=== PATIENT | female | born 1950 | race Caucasian/White ===

== ENCOUNTER → 2018-01-23 13:52 | Outpatient (CLI) | payer MEDICARE, BC, SELFPAY ==
--- NOTE | 2018-01-23 13:55 | DI.RAD.S_ITS ---
PROCEDURE: XR FOOT LT MIN 3V INDICATIONS: Left foot pain following fall TECHNIQUE: 3 views of the foot were acquired. COMPARISON: None. FINDINGS: Bones: No fractures or dislocations. No suspicious bony lesions. Prior first metatarsal osteotomy and bunionectomy. 2 micro-fixation screws present in expected position. Well-corticated osseous density seen adjacent to the lateral malleolus which may be related to an old fracture. Bony excrescence involves the distal fibular metadiaphysis along the tibial surface. Soft tissues: No tibiotalar joint effusion. Achilles tendon appears normal. IMPRESSION: No displaced fracture seen. If there is continued pain, followup exam or additional imaging such as MRI or CT could be performed for further assessment Postsurgical sequelae of the first metatarsus. Bony excrescence involving the distal fibula which may be related to a osteochondroma. Dictated by: Calin DELGADO Interpreted: Porter Ang MD on 01/23/2018 at 14:20 Approved by: Porter Ang M.D. on 01/23/2018 at 14:30
== END ==
PROVIDERS: Family Provider Family Medicine; PCP Family Medicine; Visit Provider Registered Nurse
DX: M79.672 Pain in left foot (principal)
CPT/HCPCS: 73630

== ENCOUNTER → 2018-02-20 08:57 | Outpatient (CLI) | payer MEDICARE, BC, SELFPAY ==
--- NOTE | 2018-02-20 08:59 | DI.MG.S_ITS ---
BILATERAL DIGITAL DIAGNOSTIC MAMMOGRAM 3D/2D SHORT-TERM FOLLOW-UP: 02/20/2018 CLINICAL: Patient returns for a 6 month follow up of the left breast. Due for bilateral imaging. Comparison is made to exams dated: 01/29/2017 mammogram, 01/21/2017 mammogram, and 01/19/2016 mammogram - [facility]. There are scattered fibroglandular elements in both breasts. The previously visualized oval density with an indistinct margin in the left breast at 3 o'clock posterior depth on the mammogram dated 01/29/17 is no longer seen. No other significant masses, calcifications, or other findings are seen in either breast. IMPRESSION: INCOMPLETE: NEEDS ADDITIONAL IMAGING EVALUATION An ultrasound is recommended to further characterize the previously visualized oval density in the left breast posterior depth. This exam was interpreted at Station ID: [id number]. NOTE: For mammograms, a report in lay terms will be sent to the patient. Approximately 15% of breast malignancies will not be visualized mammographically. In the management of a palpable breast mass, a negative mammogram must not discourage biopsy of a clinically suspicious lesion. Electronically Signed By: Snoi Blood M.D. lk/:02/20/2018 09:34:27 letter sent: Additional Imaging Needed ACR BI-RADS Category 0: Incomplete 3340F
--- NOTE | 2018-02-20 08:59 | DI.US.S_ITS ---
ULTRASOUND OF LEFT BREAST: 02/20/2018 CLINICAL: 6 month follow-up of cysts. Comparison is made to exams dated: 02/20/2018 mammogram, 08/19/2017 ultrasound, 01/29/2017 ultrasound, and 01/29/2017 mammogram - [facility]. Color flow ultrasound of the left breast was performed on the areas of interest. Spear scale images of the real-time examination were reviewed. There is a 0.6 cm x 0.4 cm x 0.8 cm cluster of oval microcysts in the left breast at 3 o'clock posterior depth 10 cm from the nipple. This abnormality is decreased in size. Color flow imaging demonstrates that there is no vascularity present. IMPRESSION: PROBABLY BENIGN - FOLLOW-UP RECOMMENDED The 0.6 cm x 0.4 cm x 0.8 cm cluster of oval microcysts in the left breast is probably benign. A follow-up mammogram and an ultrasound in 12 months is recommended. This exam was interpreted at Station ID: [id number]. Electronically Signed By: Soni pollard/:02/20/2018 17:30:49 letter sent: Followup Recommended Ultrasound BI-RADS: 3 Probably benign
== END ==
PROVIDERS: Family Provider Family Medicine; PCP Family Medicine; Visit Provider Family Medicine
DX: R92.8 Other abnormal and inconclusive findings on diagnostic imaging of breast (principal)
CPT/HCPCS: 76642; 77066; G0279

== ENCOUNTER 2018-03-02 06:27 | Day surgery (SDC) | payer MEDICARE, BC, SELFPAY ==
--- NOTE | 2018-03-02 | PATH_ITS ---
[facility] Accession Number: [id number] . 01 Material submitted: . RECTAL POLYP . 02 Diagnosis: Rectal Polyp: Hyperplastic polyp. MRV/03/03/2018 . 02 Electronically signed: . Bakari Carbone MD, PhD, Pathologist NPI- [id number] . 01 Gross description: . Received in one formalin-filled container labeled with the patient's name and labeled rectal polyp, are two 0.2-0.3 cm portions of tissue, entirely submitted in one cassette. ([id number]) /FRR . 02 Pathologist provided ICD-10: K62.1 . 02 CPT . 770423 Performed at: 01 [facility] [address] [facility][note 3], [place], [place] [id number] MD Leandro White MD Phone: [phone] Performed at: 02 [facility] [address] [place], [place] [id number] MD Bernardo Sanders MD Phone: [phone]
[2018-03-02 07:13] VITALS: BP 110/77; PULSE 88; RESP 16; TEMP 36.4; O2SAT 95; BMI 33.6
[2018-03-02] MEDS: SODIUM CHLORIDE 0.9% 1,000 ML 200 ML IV (07:20)
--- NOTE | 2018-03-02 07:38 | PM.HP.1 ---
History of Present Illness Date Patient Seen: 03/02/18 Time Patient Seen: 07:38 Chief complaint: Flex Sig 66100 Narrative: 67-year-old female with tubulovillous adenoma of the rectum at approximately 15 cm removed with hot snare 1 year ago. She requires surveillance for such. On further history today she had no new changes in bowel function. Denies any melena, hematochezia, bright red blood per rectum, constipation, diarrhea, abdominal pain, loss of appetite, or unexplained weight loss. Patient History Medical History History of colon polyps (Acute) Arthritis of knee (Chronic 2003) CTS (carpal tunnel syndrome) (Chronic 11/2015) Cataract (Chronic 2011) Retinal detachment (Chronic 11/2015) Tinnitus (Chronic) BCC (basal cell carcinoma of skin) (Resolved 08/1981) Surgical History History of colonoscopy (Acute) Anesthesia (Resolved) History of ovarian cystectomy (Resolved 07/1976) History of removal of skin mole (Resolved 10/1981) Family & Social History Family History: Reviewed 03/02/18 by Keith Elena MD Social History: household members spouse Tobacco & Substance use: Smoking Status Never smoker Meds Home Medications Medication Instructions Recorded Confirmed Type MULTIVITAMIN 1 cap PO QDAY #0 05/06/12 01/23/18 History Allergies Allergy/AdvReac Type Severity Reaction Status Date / Time No Known Drug Allergies Allergy Unverified 01/23/18 13:36 Review of Systems Review of Systems All systems reviewed & are unremarkable except as noted in HPI and below Exam Vital Signs (past 8 hours): - 03/02/18 07:13 Temperature 97.6 F Pulse Rate 88 Respiratory Rate 16 Blood Pressure 110/77 Pulse Oximetry 95 Narrative Exam Narrative: Well-nourished well-developed female in no acute distress. Alert oriented x3 Sclera nonicteric Regular rate rhythm Abdomen soft, nondistended, nontender, no masses Extremities show no clubbing or cyanosis Objective Labs Labs: No radiographic or laboratory studies for review Assessment & Plan Plan: Assessment/Plan Narrative: 67-year-old female with history of tubulovillous adenoma of the rectum now requiring surveillance for such. Flexible sigmoidoscopy is recommended since she underwent complete colonoscopy exactly 1 year ago. Technical details of procedure were reviewed. Risks, benefits, alternatives were explained. Risks including but not limited to sedation, aspiration, bleeding, pain, missed lesion, incomplete examination, need for further radiographic studies, need for further treatment, colonic perforation, and need for major abdominal surgery were all discussed in detail. All questions were answered to her satisfaction, and she voiced understanding. Consent was placed on the chart. We will proceed as above.
--- NOTE | 2018-03-02 07:41 | P.HP_ITS ---
History of Present Illness Date Patient Seen: 03/02/18 Time Patient Seen: 07:38 Chief complaint: Flex Sig 20076 Narrative: 67-year-old female with tubulovillous adenoma of the rectum at approximately 15 cm removed with hot snare 1 year ago. She requires surveillance for such. On further history today she had no new changes in bowel function. Denies any melena, hematochezia, bright red blood per rectum, constipation, diarrhea, abdominal pain, loss of appetite, or unexplained weight loss. Patient History Medical History History of colon polyps (Acute) Arthritis of knee (Chronic 2003) CTS (carpal tunnel syndrome) (Chronic 11/2015) Cataract (Chronic 2011) Retinal detachment (Chronic 11/2015) Tinnitus (Chronic) BCC (basal cell carcinoma of skin) (Resolved 08/1981) Surgical History History of colonoscopy (Acute) Anesthesia (Resolved) History of ovarian cystectomy (Resolved 07/1976) History of removal of skin mole (Resolved 10/1981) Family & Social History Family History: Reviewed 03/02/18 by Keith Elena MD Social History: household members spouse Tobacco & Substance use: Smoking Status Never smoker Meds Home Medications Medication Instructions Recorded Confirmed Type MULTIVITAMIN 1 cap PO QDAY #0 05/06/12 01/23/18 History Allergies Allergy/AdvReac Type Severity Reaction Status Date / Time No Known Drug Allergies Allergy Unverified 01/23/18 13:36 Review of Systems Review of Systems All systems reviewed & are unremarkable except as noted in HPI and below Exam Vital Signs (past 8 hours): - 03/02/18 07:13 Temperature 97.6 F Pulse Rate 88 Respiratory Rate 16 Blood Pressure 110/77 Pulse Oximetry 95 Narrative Exam Narrative: Well-nourished well-developed female in no acute distress. Alert oriented x3 Sclera nonicteric Regular rate rhythm Abdomen soft, nondistended, nontender, no masses Extremities show no clubbing or cyanosis Objective Labs Labs: No radiographic or laboratory studies for review Assessment & Plan Plan: Assessment/Plan Narrative: 67-year-old female with history of tubulovillous adenoma of the rectum now requiring surveillance for such. Flexible sigmoidoscopy is recommended since she underwent complete colonoscopy exactly 1 year ago. Technical details of procedure were reviewed. Risks, benefits, alternatives were explained. Risks including but not limited to sedation, aspiration, bleeding, pain, missed lesion , incomplete examination, need for further radiographic studies, need for further treatment, colonic perforation, and need for major abdominal surgery were all discussed in detail. All questions were answered to her satisfaction, and she voiced understanding. Consent was placed on the chart. We will proceed as above.
--- NOTE | 2018-03-02 07:42 | PM.PREOP ---
Pre-operative Note Interval Note Pre-op Check: Yes History & Physical Reviewed by Physician, Yes Exam Performed and Yes History & Physical exam performed today by Physician Changes: No ASA Class (for procedural sedation): I
[2018-03-02] MEDS: MIDAZOLAM 5 MG/5 ML VIAL IV (07:55)
[2018-03-02] MEDS: fentaNYL 250 MCG/5 ML INJ IV (07:56)
[2018-03-02 08:12] VITALS: BP 94/64; PULSE 99; RESP 16; TEMP 36.9; O2SAT 96
--- NOTE | 2018-03-02 08:13 | P.OP.ENDO_ITS ---
Operative Date/Time/Diagnoses Date of procedure: 03/02/18 Time of procedure: 08:10 Pre-op diagnosis: Personal history of colon polyps Post-op diagnosis: other (Rectal polyp and diverticulosis) Procedure & Clinicians Study performed: 1. Sedation per surgeon 2. Colonoscopy with cold forceps polypectomy Same procedure as scheduled: Yes Indications: 67-year-old female who is 1 year status post colonoscopy with hot snare polypectomy of large rectal polyp that was shown to be tubulovillous adenoma. She requires surveillance given the size and location of the adenoma. Flexible sigmoidoscopy versus colonoscopy was recommended. Surgeon: Keith Elena Procedure Notes SCOAP/Timeout: Yes Procedure in detail: After obtaining informed consent, the patient was brought to the GI suite and placed in the left lateral decubitus position on the examination table. After placement of appropriate monitors, the patient was given incremental doses of Versed and Fentanyl until an appropriate level of sedation was achieved. A time out was held per SCOAP protocol. A digital rectal examination was performed and did not reveal any masses or obstructing lesions. The colonoscope was gently passed into the patient's anus and the entire colon navigated to the level of the cecum with minimal difficulty. Once in the cecum, the scope was withdrawn being sure to go before and beyond all mucosal folds and prominences and get an excellent examination. The findings are noted above. At the level of the rectal vault, the scope was retroflexed and the internal anal canal was examined. The scope was straightened and air aspirated from the colon. The instrument was removed from the patient's body and the procedure was concluded. The patient was allowed to awaken from sedation without difficulty and taken to the post-anesthesia care unit in good condition. Scope withdrawal time: 9:30 min Sedation minutes: 18 Findings: diverticulosis and polyp Specimen(s): other (Rectal polyp adjacent to Cam[place] tattoo at approximately 12 cm) Complications: none Recommendations: Colonscopy in 5 years, High fiber diet and Will call with biopsy results Plan for aftercare: 1. Discharged home Follow up: as needed Disposition: PACU
[2018-03-02 08:17] VITALS: BP 97/64; PULSE 92; RESP 15; O2SAT 96
[2018-03-02 08:29] VITALS: BP 93/55; PULSE 91; RESP 15; TEMP 36.3; O2SAT 96
== END 2018-03-02 08:55 | disposition home or self-care (01) ==
PROVIDERS: Family Provider Family Medicine; PCP Family Medicine; Visit Provider Surgery
PROC: 0DJD8ZZ Inspection of Lower Intestinal Tract, Via Natural or Artificial Opening Endoscopic (ICD-10-PCS; CPT 45378; principal; 2018-03-02 07:45)
DX: Z86.010 Personal history of colon polyps (principal); K57.30 Diverticulosis of large intestine without perforation or abscess without bleeding; K62.1 Rectal polyp
CPT/HCPCS: 45380; 88305; 99152; J2250; J3010

== ENCOUNTER → 2018-05-12 19:17 | Outpatient (CLI) | payer MEDICARE, BC, SELFPAY ==
--- NOTE | 2018-05-12 19:20 | DI.RAD.S_ITS ---
PROCEDURE: XR SHOULDER RT MIN 2V INDICATIONS: right shoulder pain after fall TECHNIQUE: 3 views of the shoulder were acquired. COMPARISON: None. FINDINGS: Bones: Greater tuberosity fracture, minimally displaced. Mild a.c. and glenohumeral joint degeneration. Anatomic alignment at the glenohumeral joint Soft tissues: No suspicious soft tissue calcifications. IMPRESSION: Minimally displaced fracture involving the greater tuberosity. The Dictated by: Иван Carrillo M.D. on 05/12/2018 at 19:57 Approved by: Иван Carrillo M.D. on 05/12/2018 at 19:58
== END ==
PROVIDERS: Family Provider Family Medicine; PCP Family Medicine; Visit Provider Physician Assistant
DX: M25.511 Pain in right shoulder (principal); M19.011 Primary osteoarthritis, right shoulder
CPT/HCPCS: 73030

== ENCOUNTER → 2018-10-28 07:02 | Outpatient (CLI) | payer MEDICARE, BC, SELFPAY ==
[2018-10-28 09:38] LABS: Add Manual Diff / Slide Review NO; Basophils Absolute Auto 100 /uL (0-100); Basophils Percent Auto 0.9 % (0-2); Eosinophils Absolute Auto 200 /uL (0-450); Eosinophils Percent Auto 2.2 % (2-4); Hematocrit 43.3 % (36-46); Lymphocytes Absolute Auto 2700 /uL (1100-4500); Lymphocytes Percent Auto 33.8 % (25-40); Mean Corpuscular HGB Conc 34.7 % (30-36); Mean Corpuscular Hemoglobin 32.7 PG (26-34); Mean Corpuscular Volume 94.1 fL (80-100); Monocytes Absolute Auto 600 /uL (0-900); Monocytes Percent Auto 7.5 % (3-14); Neutrophils Absolute Auto 4400 /uL (1500-7000); Neutrophils Percent Auto 55.6 % (50-75); Platelet Count 342 X10^3/uL (150-400); Red Cell Distribution Width 13.5 % (11.6-14.8); White Blood Cell Count 7.9 X10^3/uL (4.5-11.0)
[2018-10-28 09:58] LABS: Alanine Aminotransferase 30 IU/L (9-52); Albumin 4.2 g/dL (3.5-5.0); Albumin Globulin Ratio 1.2 (1.0-2.8); Alkaline Phosphatase 90 U/L (38-126); Aspartate Aminotransferase 29 IU/L (14-36); BUN Creatinine Ratio 15.7 (6-22); Bilirubin Total 0.5 mg/dL (0.2-1.3); Blood Urea Nitrogen 11 mg/dL (7-17); Carbon Dioxide 30 mmol/L (22-32); Chloride 103 mmol/L (98-107); Cholesterol 220 mg/dL (140-199); Estimated Glomerular Filt Rate > 60.0 mL/min (>60); Globulin 3.6 g/dL (1.7-4.1); Glucose 88 mg/dL (80-110); HDL Cholesterol 49 mg/dL (40-60); HEMOLYSIS < 15 (0-50); LDL Cholesterol Calculated 147 mg/dL (<100); Potassium 4.3 mmol/L (3.4-5.1); Sodium 141 mmol/L (137-145); Total Protein 7.8 g/dL (6.3-8.2); Triglycerides 122 mg/dL (35-150)
[2018-10-28 10:39] LABS: Thyroid Stimulating Hormone 2.71 uIU/mL (0.47-4.68)
== END ==
PROVIDERS: PCP Family Medicine; Visit Provider Family Medicine
DX: R42 Dizziness and giddiness (principal)
CPT/HCPCS: 36415; 80053; 80061; 84443; 85025

== ENCOUNTER → 2019-03-01 10:08 | Outpatient (CLI) | payer MEDICARE, BC, SELFPAY ==
--- NOTE | 2019-03-01 10:10 | DI.MG.S_ITS ---
BILATERAL DIGITAL DIAGNOSTIC MAMMOGRAM 3D/2D SHORT-TERM FOLLOW-UP: 03/01/2019 CLINICAL: Patient returns for a 12 month follow up of the left breast. Due for bilateral imaging. Comparison is made to exams dated: 02/20/2018 mammogram, 01/29/2017 mammogram, 01/21/2017 mammogram, and 01/19/2016 mammogram - [facility]. There are scattered fibroglandular elements in both breasts. There is an oval density with an indistinct margin in the left breast at 3 o'clock posterior depth. This is not significantly changed over multiple prior exams. No other significant masses, calcifications, or other findings are seen in either breast. IMPRESSION: INCOMPLETE: NEEDS ADDITIONAL IMAGING EVALUATION The density in the left breast is stable. An ultrasound is recommended for confirmation of stability. This was performed immediately following this exam. The right breast mammogram is stable without evidence of malignancy. This exam was interpreted at Station ID: [id number]. NOTE: For mammograms, a report in lay terms will be sent to the patient. Approximately 15% of breast malignancies will not be visualized mammographically. In the management of a palpable breast mass, a negative mammogram must not discourage biopsy of a clinically suspicious lesion. Electronically Signed By: Yanique lopez/:03/01/2019 11:04:00 ACR BI-RADS Category 0: Incomplete 3340F
--- NOTE | 2019-03-01 10:10 | DI.US.S_ITS ---
ULTRASOUND OF LEFT BREAST: 03/01/2019 CLINICAL: 1 yr f/u. Comparison is made to exams dated: 03/01/2019 mammogram, 02/20/2018 ultrasound, 02/20/2018 mammogram, 08/19/2017 ultrasound, 01/29/2017 ultrasound, and 01/29/2017 mammogram - [facility]. Color flow and real-time ultrasound of the left breast were performed. Spear scale images of the real-time examination were reviewed. There is a stable benign 0.6 cm x 0.5 cm x 0.5 cm cluster of oval micro cysts in the left breast at 3 o'clock posterior depth 10 cm from the nipple. No suspicious changes. Color flow imaging demonstrates that there is no vascularity present. IMPRESSION: BENIGN The 0.6 cm cluster of micro cysts in the left breast is stable and benign. There is no sonographic evidence of malignancy. Return to annual mammogram screening schedule is recommended. Findings and recommendations were conveyed to the patient at time of exam. This exam was interpreted at Station ID: [id number]. Electronically Signed By: Yanique lopez/:03/01/2019 11:27:04 letter sent: Normal Exam Ultrasound BI-RADS: 2 Benign
== END ==
PROVIDERS: PCP Family Medicine; Visit Provider Family Medicine
DX: R92.8 Other abnormal and inconclusive findings on diagnostic imaging of breast (principal); N64.89 Other specified disorders of breast
CPT/HCPCS: 76642; 77066; G0279

== ENCOUNTER → 2019-04-01 09:34 | Outpatient (CLI) | payer MEDICARE, BC, SELFPAY ==
[2019-04-04 14:19] LABS: ANA Screen, IFA NEGATIVE (NEGATIVE)
== END ==
PROVIDERS: PCP Family Medicine; Visit Provider Physician Assistant
DX: L71.8 Other rosacea (principal)
CPT/HCPCS: 36415; 86038

== ENCOUNTER → 2019-11-29 07:18 | Outpatient (CLI) | payer MEDICARE, BC, SELFPAY ==
[2019-11-29 07:45] LABS: Add Manual Diff / Slide Review NO; Basophils Absolute Auto 100 /uL (0-100); Eosinophils Absolute Auto 300 /uL (0-450); Hematocrit 44.6 % (36-46); Lymphocytes Absolute Auto 2400 /uL (1100-4500); Lymphocytes Percent Auto 32.9 % (25-40); Mean Corpuscular HGB Conc 33.7 % (30-36); Mean Corpuscular Hemoglobin 32.1 PG (26-34); Mean Corpuscular Volume 95.3 fL (80-100); Monocytes Absolute Auto 600 /uL (0-900); Monocytes Percent Auto 8.5 % (3-14); Neutrophils Absolute Auto 3900 /uL (1500-7000); Neutrophils Percent Auto 53.6 % (50-75); Platelet Count 345 X10^3/uL (150-400); Red Blood Cell Count 4.68 X10^6/uL (4.0-5.2); Red Cell Distribution Width 13.4 % (11.6-14.8); White Blood Cell Count 7.3 X10^3/uL (4.5-11.0)
[2019-11-29 08:12] LABS: Alanine Aminotransferase 42 IU/L (<35); Albumin 4.2 g/dL (3.5-5.0); Albumin Globulin Ratio 1.2 (1.0-2.8); Alkaline Phosphatase 83 U/L (38-126); Aspartate Aminotransferase 35 IU/L (14-36); BUN Creatinine Ratio 18.6 (6-22); Bilirubin Total 0.4 mg/dL (0.2-1.3); Blood Urea Nitrogen 13 mg/dL (7-17); Calcium 9.2 mg/dL (8.4-10.2); Carbon Dioxide 30 mmol/L (22-32); Chloride 105 mmol/L (98-107); Cholesterol 235 mg/dL (140-199); Estimated Glomerular Filt Rate > 60.0 mL/min (>60); Globulin 3.4 g/dL (1.7-4.1); Glucose 112 mg/dL (80-110); HDL Cholesterol 45 mg/dL (40-60); HEMOLYSIS < 15 (0-50); LDL Cholesterol Calculated 161 mg/dL (<100); Potassium 4.1 mmol/L (3.4-5.1); Sodium 139 mmol/L (137-145); Total Protein 7.6 g/dL (6.3-8.2); Triglycerides 143 mg/dL (35-150)
[2019-11-29 08:45] LABS: Thyroid Stimulating Hormone 2.47 uIU/mL (0.47-4.68)
== END ==
PROVIDERS: PCP Family Medicine; Referring Provider Family Medicine; Visit Provider Family Medicine
DX: L71.9 Rosacea, unspecified (principal)
CPT/HCPCS: 36415; 80053; 80061; 84443; 85025

== ENCOUNTER → 2020-03-02 10:07 | Outpatient (CLI) | payer MEDICARE, BC, SELFPAY ==
--- NOTE | 2020-03-02 | DI.MG.S_ITS ---
BILATERAL DIGITAL SCREENING MAMMOGRAM 3D/2D WITH CAD: 03/02/2020 CLINICAL: Routine screening. Comparison is made to exams dated: 03/01/2019 mammogram, 02/20/2018 mammogram, 01/21/2017 mammogram, and 01/19/2016 mammogram - [facility]. There are scattered fibroglandular elements in both breasts. Current study was also evaluated with a Computer Aided Detection (CAD) system. There are grouped calcifications in the left breast at 6 o'clock anterior depth. These are increased in number. No other significant masses, calcifications, or other findings are seen in either breast. IMPRESSION: INCOMPLETE: NEEDS ADDITIONAL IMAGING EVALUATION The grouped calcifications in the left breast are indeterminate. Mediolateral and magnification views as well as a diagnostic mammogram are recommended. This exam was interpreted at Station ID: [id number]. NOTE: For mammograms, a report in lay terms will be sent to the patient. Approximately 15% of breast malignancies will not be visualized mammographically. In the management of a palpable breast mass, a negative mammogram must not discourage biopsy of a clinically suspicious lesion. Electronically Signed By: David hong/toni:03/02/2020 16:11:27 letter sent: Additional Imaging Needed ACR BI-RADS Category 0: Incomplete 3340F
== END ==
PROVIDERS: PCP Family Medicine; Referring Provider Family Medicine; Visit Provider Family Medicine
DX: Z12.31 Encounter for screening mammogram for malignant neoplasm of breast (principal)
CPT/HCPCS: 77063; 77067

== ENCOUNTER → 2020-03-13 07:12 | Outpatient (CLI) | payer MEDICARE, BC, SELFPAY ==
[2020-03-13 08:28] LABS: Cholesterol 213 mg/dL (140-199); HDL Cholesterol 48 mg/dL (40-60); LDL Cholesterol Calculated 146 mg/dL (<100); Triglycerides 96 mg/dL (35-150)
== END ==
PROVIDERS: PCP Family Medicine; Referring Provider Family Medicine; Visit Provider Family Medicine
DX: E78.5 Hyperlipidemia, unspecified (principal)
CPT/HCPCS: 36415; 80061

== ENCOUNTER → 2020-03-22 12:52 | Outpatient (CLI) | payer MEDICARE, BC, SELFPAY ==
--- NOTE | 2020-03-22 12:55 | DI.MG.S_ITS ---
UNILATERAL LEFT DIGITAL DIAGNOSTIC MAMMOGRAM 3D/2D WITH ADDITIONAL VIEWS: 03/22/2020 CLINICAL: Additional evaluation requested from prior study. Comparison is made to exams dated: 03/02/2020 mammogram, 03/01/2019 mammogram, and 02/20/2018 mammogram - [facility]. There are scattered fibroglandular elements in left breast. There are new grouped fine calcifications in the left breast at 6 o'clock anterior depth. No other significant masses or calcifications are seen in the breast. IMPRESSION: SUSPICIOUS OF MALIGNANCY The new grouped fine calcifications in the left breast are at a moderate suspicion for malignancy. A stereotactic biopsy is recommended. The findings were discussed with the patient at the conclusion of the study by Dr. Carrillo. This exam was interpreted at Station ID: [id number]. NOTE: For mammograms, a report in lay terms will be sent to the patient. Approximately 15% of breast malignancies will not be visualized mammographically. In the management of a palpable breast mass, a negative mammogram must not discourage biopsy of a clinically suspicious lesion. Electronically Signed By: Leandro warner/:03/22/2020 13:23:45 letter sent: Biopsy Required ACR BI-RADS Category 4b: Suspicious abnormality - intermediate suspicion of malignancy [id number]
== END ==
PROVIDERS: PCP Family Medicine; Referring Provider Family Medicine; Visit Provider Family Medicine
DX: R92.8 Other abnormal and inconclusive findings on diagnostic imaging of breast (principal); R92.1 Mammographic calcification found on diagnostic imaging of breast
CPT/HCPCS: 77065; G0279

== ENCOUNTER → 2020-04-12 10:00 | Outpatient (CLI) | payer MEDICARE, BC, SELFPAY ==
--- NOTE | 2020-04-12 10:02 | DI.RAD.S_ITS ---
PROCEDURE: XR CHEST 2V INDICATIONS: r/o evidence of mets TECHNIQUE: 2 views of the chest were acquired. COMPARISON: [facility], , CHEST 1 VIEW, 12/27/2015, 13:51. FINDINGS: Surgical changes and devices: None. Lungs and pleura: Lungs are clear. No pleural effusions or pneumothorax. Mediastinum: Mediastinal contours are normal. Heart size is normal. Bones and chest wall: No suspicious bony abnormalities. Soft tissues appear unremarkable. IMPRESSION: Normal for age, no evidence of metastatic disease. Dictated by: Porter Ang M.D. on 04/12/2020 at 10:41 Approved by: Porter Ang M.D. on 04/12/2020 at 10:42
[2020-04-12 10:36] LABS: Add Manual Diff / Slide Review NO; Basophils Absolute Auto 100 /uL (0-100); Basophils Percent Auto 0.8 % (0-2); Eosinophils Absolute Auto 100 /uL (0-450); Hematocrit 43.1 % (36-46); Hemoglobin 14.5 g/dL (12.0-16.0); Lymphocytes Absolute Auto 2000 /uL (1100-4500); Lymphocytes Percent Auto 30.6 % (25-40); Mean Corpuscular HGB Conc 33.6 % (30-36); Mean Corpuscular Hemoglobin 31.7 PG (26-34); Mean Corpuscular Volume 94.3 fL (80-100); Monocytes Absolute Auto 600 /uL (0-900); Monocytes Percent Auto 9.1 % (3-14); Neutrophils Absolute Auto 3800 /uL (1500-7000); Neutrophils Percent Auto 57.5 % (50-75); Platelet Count 309 X10^3/uL (150-400); Red Blood Cell Count 4.57 X10^6/uL (4.0-5.2); Red Cell Distribution Width 13.6 % (11.6-14.8); White Blood Cell Count 6.6 X10^3/uL (4.5-11.0)
[2020-04-12 11:00] LABS: Alanine Aminotransferase 34 IU/L (<35); Albumin 4.1 g/dL (3.5-5.0); Albumin Globulin Ratio 1.2 (1.0-2.8); Alkaline Phosphatase 72 U/L (38-126); Aspartate Aminotransferase 34 IU/L (14-36); BUN Creatinine Ratio 22.5 (6-22); Bilirubin Total 0.3 mg/dL (0.2-1.3); Blood Urea Nitrogen 16 mg/dL (7-17); Calcium 9.2 mg/dL (8.4-10.2); Carbon Dioxide 33 mmol/L (22-32); Chloride 106 mmol/L (98-107); Estimated Glomerular Filt Rate > 60.0 mL/min (>60); Globulin 3.5 g/dL (1.7-4.1); Glucose 80 mg/dL (80-110); HEMOLYSIS < 15 (0-50); Potassium 4.7 mmol/L (3.4-5.1); Sodium 141 mmol/L (137-145); Total Protein 7.6 g/dL (6.3-8.2)
== END ==
PROVIDERS: PCP Family Medicine; Referring Provider Specialist; Visit Provider Specialist
DX: C50.912 Malignant neoplasm of unspecified site of left female breast (principal)
CPT/HCPCS: 36415; 71046; 80053; 85025; 99214

== ENCOUNTER → 2020-05-05 09:26 | Outpatient (CLI) | payer MEDICARE, BC, SELFPAY ==
[2020-05-05 11:02] LABS: COVID19 -Nasal RAPID Negative (Negative)
== END ==
PROVIDERS: PCP Family Medicine; Visit Provider Specialist
DX: Z01.812 Encounter for preprocedural laboratory examination (principal); Z20.828 Contact with and (suspected) exposure to other viral communicable diseases
CPT/HCPCS: 87635; 99211

== ENCOUNTER 2020-05-08 06:59 | Day surgery (SDC) | payer MEDICARE, BC, SELFPAY ==
[2020-05-05 14:42] VITALS: BMI 34.5
[2020-05-08] VITALS (21 sets, daily range): BP systolic 110–140; BP diastolic 63–76; PULSE 65–94; RESP 10–21; TEMP 35.7–36.4; O2SAT 92–100; BMI 34.0
--- NOTE | 2020-05-08 | PATH_ITS ---
[facility] Accession Number: [id number] . 01 Material submitted: . PART A: breast - LEFT BREAST TISSUE PART B: lymph node - SENTINEL NODE . 01 Clinical history: . A: LEFT BREAST TISSUE- LONG STITCH MEDIAL, SHORT STITCH TAIL OF ABAD. B: SENTINEL NODE STITCH AROUND NODE . 02 Diagnosis: A. Left Breast, Mastectomy: Invasive lobular carcinoma; see Cancer Case Summary. . B. [place] Lymph Nodes, Excisional Biopsy: Seven lymph nodes, negative for carcinoma (confirmed with JENARO immunohistochemical stains). . . CANCER CASE SUMMARY - INVASIVE CARCINOMA OF THE BREAST . Procedure: Total mastectomy. Specimen laterality: Left. Tumor site: 6 o'clock. Tumor size: 5 mm in greatest dimension. Histologic type: Invasive lobular carcinoma. Histologic grade (Jeannie histologic score) Glandular/tubular differentation: Score 3. Nuclear pleomorphism: Score 1. Mitotic rate: Score 1. Overall grade: Grade 1. Tumor focality: Single focus of invasive carcinoma. Ductal carcinoma in situ: Not identified. Lobular carcinoma in situ: Present. Tumor extension: Skin is present and uninvolved. Margins: Invasive carcinoma margins: Uninvolved by invasive carcinoma. Distance from closest margin: Greater than 19 mm. Specify closest margin: Anterior inferior. Regional lymph nodes: Uninvolved by tumor cells. Total number of lymph nodes examined: Seven. Number of sentinel lymph nodes examined: Seven. Treatment effect in the breast: No known presurgical therapy. Lymphovascular invasion: Not identified. Dermal lymphovascular invasion: Not identified. Pathologic stage classifiation (pTNM, AJCC 8th Edition): Primary tumor: pT1b. Regional lymph nodes: pN0. Ancillary studies: Breast biomarker testing performed on previous biopsy: [place], [place] ([id number]; 03/29/2020) (Per report - slides not reviewed). Estrogen receptor: Positive (3+, 100%). Progesterone receptor: Positive (3+, 100%). HER2 by immunohistochemistry: Negative (focal 1+). Microcalcifications: Present in nonneoplastic tissue. MRV 05/16/2020 1731 Local . 02 Comment: As part of routine billing and quality technician, Dr. Asher has reviewed select slides and the e-cadherin immunohistochemical stain, and agrees with the diagnosis of invasive lobular carcinoma in a background of LCIS. The histologic findings in this case were discussed between Dr. Todd and Dr. Carbone on 05/16/2020. . 02 Electronically signed: . Bakari Carbone MD, PhD, Pathologist NPI- [id number] . 01 Gross description: . A. The specimen is received in formalin, labeled left breast tissue. . Specimen: Left simple mastectomy. Weight: 447 grams. Measurement: 4.5 cm from anterior to posterior, 15.0 cm medial to lateral, and 17.0 cm from superior to inferior. Skin Ellipse: Present, meadows-white, measuring 5.5 x 3.6 cm. Nipple/Areola: 1.0 x 1.0 x 0.3 cm everted nipple with a 2.0 x 2.0 cm areolar complex. Axillary Tail: Non-prominent. Margins: The specimen is oriented by the surgeon with a long suture designated medial and a short suture designated tail of Abad. The specimen is inked as follows: anterosuperior blue, anteroinferior green, and posterior black. Slices: The specimen is sectioned from medial to lateral into 16 slices. Lesion: There is a 0.5 x 0.5 x 0.5 cm firm meadows-white presumed previous biopsy site within slices 6 and 7, with surrounding microcalcifications within the approximate 6 o'clock position. Distance to Margins: 2.5 cm from the posterior margin, 1.9 cm from the anteroinferior margin, 3.2 cm from the anterosuperior margin, and 2.0 cm from the skin. Other: The remaining breast parenchyma consists of approximately 75% meadows-yellow adipose tissue and 25% meadows-white fibrous tissue. . Satellite Dish Technician sections are submitted. A1 - Nipple, serially sectioned. A2 - Slice 5, medial to biopsy site. A3 - Slice 6, biopsy site in relation to anteroinferior margin. A4-A5 - Slice 7, biopsy site in relation to anteroinferior margin. A6 - Slice 7, closest posterior margin. A7 - Slice 7, skin, nipple base and microcalcifications. A8 - Slice 7, closest anterosuperior margin. A9-A10 - Slice 8, lateral to biopsy site. A11 - Slice 9, lateral to biopsy site. A12 - Upper outer quadrant. A13 - Lower outer quadrant. A14 - Upper inner quadrant. A15 - Lower inner quadrant. . Formalin fixation time: Approximately 48 hours. ([id number]) . B. Received in formalin, labeled sentinel node, and consists of multiple meadows-yellow fragments of adipose tissue measuring 4.0 x 4.0 x 2.5 cm in aggregate. There is a suture designated around node. Sectioning reveals multiple candidate lymph nodes ranging from 0.1 to 1.8 cm. The lymph nodes are entirely submitted. . B1 - intact candidate lymph nodes. B2 - intact lymph node closest to suture. . Formalin fixation time: Approximately 24 hours. (EA:[id number]) /MRV 05/16/2020 1731 Local . 02 Microscopic: . A. The carcinoma cells are negative for e-cadherin immunoreactivity, consistent with lobular carcinoma. Additionally, the in-situ neoplasm involving ductules also shows no immunoreactivity for e-cadherin, consistent with involvment by LCIS, and strongly arguing against DCIS. A control stain shows appropriate reactivity. . B. Sections are of lymph nodes with no evidence of metastatic carcinoma. JENARO immunohistochemical stains are negative for epithelial cells on both blocks B1 and B2. A control stain shows appropriate reactivity. . * This test was developed and its performance characteristics determined by [employer]. It has not been cleared or approved by the U.S. Food and Drug Administration. The FDA has determined that such clearance or approval is not necessary. This test is used for clinical purposes. It should not be regarded as investigational or for research. . 02 Pathologist provided ICD-10: C50.912 . 02 CPT . 456526, 012147, K03104 Performed at: 01 [facility] [address] [place] [address] [address], [place], [place] [id number] MD Leandro White MD Phone: [phone] Performed at: 02 [facility] [place] [address] [place] [id number] MD Giuliana Asher MD Phone: [phone]
--- NOTE | 2020-05-08 07:04 | DI.NM.S_ITS ---
PROCEDURE: NM SENTINEL NODE W IMAGING RADIOPHARMACEUTICAL: 0.5-1.0 mCi Millipore filtered Tc-99m sulfur colloid. INDICATIONS: breast cancer COMPARISON: None. TECHNIQUE: The area around the nipple was prepped and draped in a sterile fashion. Tc-99m sulfur colloid was injected intra-dermally in the outer edge of the areola in the left breast. Images were obtained subsequently. A body contour outline was obtained. FINDINGS: There is/are 2 lymph node(s) in the ipsilateral axilla, which is marked on the skin and the images for referring physician. IMPRESSION: Administration of radiotracer into the left breast periareolar region for intra-operative sentinel lymph node localization. Dictated by: Belkis King MD, PhD on 05/08/2020 at 10:31 Approved by: Belkis King MD, PhD on 05/08/2020 at 10:33
[2020-05-08] MEDS: LACTATED RINGERS 1,000 ML 42 ML IV ×2 (08:20→12:22)
[2020-05-08] MEDS: CEFAZOLIN 2 GM/100 ML FROZ.PIGGY IV (10:02)
--- NOTE | 2020-05-08 10:02 | PM.PREOP ---
Pre-operative Note COVID-19 COVID-19 status: Negative Result date/Date tested (Pos, Neg/Pending): 05/05/20 Interval Note History & Physical reviewed/Exam performed by Physician: Yes Changes to H&P: No
--- NOTE | 2020-05-08 10:35 | SUR.OPER ---
Supine on padded OR bed, head on gel donut, arms secured on padded arm boards at <90 degrees abduction, legs uncrossed, safety belt at thigh.
[2020-05-08] MEDS: BUPIVACAINE 0.5% (PF) VIAL 30 ML INJ (10:50)
--- NOTE | 2020-05-08 13:19 | PM.OP.1 ---
Operative Date/Time/Diagnoses Date of procedure: 05/08/20 Time of procedure: 13:19 Pre-op diagnosis: Left breast cancer Post-op diagnosis: same Procedure & Clinicians Procedure: Mastectomy with sentinel node biopsy Same procedure as scheduled: Yes Indications: Surgical treatment of breast cancer. Based on pathology of biopsy at least a T2 lesion clinically N 0 M 0 Surgeon: Elio Todd Click Yes if Unassisted: Yes Anesthesia Type: General Operative Notes Findings: Single hot node identified despite imaging. Closure Type: primary Specimen(s): other (Breast and christa tissue) Prosthetic devices, grafts, tissues, transplants, or devices: None Applied: drain(s) (Nineteen [place] Dayton drain) Estimated Blood Loss (mL): 100 Blood products transfused: none Procedure in detail: Patient was placed supine on the operating table underwent general LMA anesthesia. She was prepped and draped in the usual fashion. Ellipse was made around her nipple-areolar complex and carried down through subcu. Flaps were raised superiorly to the level of the clavicle and medial midline and lateral Palomo latissimus. The axilla was entered superiorly but I found it difficult to manipulate her breast and try to identify the sentinel node so I decided to take the breast off 1st. Co an inferior flap was raised to the level of the rectus in the inferior mammary fold. The fascia was incised inferior medial and superiorly and the breast was taken off with the underlying fascia from superior to inferior and medial lateral. The breast was ultimately detached. Moist lap was placed under the flaps and a search was made for the sentinel node. Is actually quite deep in the axilla. With very tedious dissection I ultimately was able to remove it. Structures going into or tied with 2-0 silk ties. Additional tissue surrounding it was also removed. The sentinel node was marked with a tie and specimen placed in formalin. The subcu was closed with interrupted 3 0 Vicryl. The skin was closed a running 4-0 Vicryl subcuticular stitch and Steri-Strips. Dressing was applied. Patient was awakened and taken the recovery area in good condition. Complications: none Post-operative Condition: stable Disposition: PACU Plan for aftercare: Overnight observation
[2020-05-08] MEDS: fentaNYL 100 MCG/2 ML INJ IV ×2 (13:32→13:40)
[2020-05-08] MEDS: HYDROMORPHONE 2 MG INJ IV ×3 (13:33→13:52)
[2020-05-08] MEDS: OXYCODONE/ACETAMINOPHEN 5/325 TABLET 1 TAB PO (14:14)
[2020-05-08] MEDS: LACTATED RINGERS 1,000 ML 80 ML IV (15:00)
[2020-05-08] MEDS: OXYCODONE IR 5 MG TABLET PO ×2 (17:35→20:50)
[2020-05-08] MEDS: ZOLPIDEM 5 MG TABLET 10 MG PO (20:50)
[2020-05-08] MEDS: GABAPENTIN 300 MG CAPSULE PO (20:50)
--- NOTE | 2020-05-08 22:16 | PC.NURSE ---
SHIFT Report received, care assumed 1530. A&Ox3. VSS. Reported pain 6-7 at beginning of shift, steadily decreased to 06/11. Circumferential WINDY bandage around chest, Dayton drain with sanguinous drainage. Pt. is low fall risk, moving independently in the room.
[2020-05-09 00:18] VITALS: BP 121/57; PULSE 78; RESP 16; TEMP 36.1; O2SAT 97
[2020-05-09] MEDS: OXYCODONE IR 5 MG TABLET PO ×3 (01:03→09:27)
--- NOTE | 2020-05-09 02:47 | PC.NURSE ---
0106 Patient is alert and oriented. Breath sounds CTA with RA sat 97%. HRR. Denies nausea. BT present and is passing flatus. Denies dysuria, frequency or urgency with urination. Is able to move herself in bed. Up to bathroom with SBA; promotes feeling of dizziness if she looks down when out of bed and has hx of vertigo. Dressing + richard wrap to left breast is CDI; Dayton drain is intact and compressed. Denies pain; is on scheduled Oxycodone. Wearing bilateral calf SCD's. Fall risk score is low, but bed alarm is activated for night time safety.
[2020-05-09 04:32] VITALS: BP 112/57; PULSE 74; RESP 16; TEMP 36.3; O2SAT 96
[2020-05-09] MEDS: LACTATED RINGERS 1,000 ML 80 ML IV (05:04)
[2020-05-09 08:00] VITALS: BP 117/63; PULSE 79; RESP 18; TEMP 36.1; O2SAT 95
[2020-05-09] MEDS: SENNOSIDES 8.6 MG TABLET 17.2 MG PO (09:28)
[2020-05-09] MEDS: GABAPENTIN 300 MG CAPSULE PO (09:28)
--- NOTE | 2020-05-09 09:40 | CM.DANOTE ---
Addendum entered by Pennie Blanton LPN 05/09/20 09:50: Met now with pt. Introduced self and role. Pt has just completed drain teaching with RN caring for her today. She says she is pleased to go home today and will be calling her shortly. She is up independently in room this morning and is functionally independent at baseline. P: home this morning. Original Note: Discharge Planning/Care Management DCP: assessment: case received, EMR reviewed. DC to home setting noted. Pt is a 69 year old female who admitted yesterday for a scheduled Mastectomy. Surgeon: Dr. Todd PCP: Dr. Zita Boothe Payer: Medicare and [facility]. Dr. Todd saw pt this morning and plans for pt to go home later today with drains in place and plan to see her in clinic and go over the pathology report at that time. Will check in with pt this morning and follow prn for any d/c planning needs. Advanced directive, confirm from FAMILY Start: 05/08/20 14:46 Freq: Q24H Status: Active Protocol: Document 05/08/20 14:46 KJ (Rec: 05/08/20 20:52 KJ [id number]) Advance Directive, confirm on record Time 18:00 Person contacted spouse Copy received No CM Discharge Assessment Start: 05/09/20 09:39 Freq: Status: Active Protocol: Document 05/09/20 09:39 ITV (Rec: 05/09/20 09:40 ITV [id number]) Discharge Planning Assessment Advance Directives? Yes History Provided By Medical Record Household Members spouse Is patient alert and oriented? Yes Discharge Plan Home Review Status In Process Pre-Anesthesia Assessment Start: 05/05/20 14:42 Freq: Status: Complete Protocol: Document 05/05/20 14:42 CAB (Rec: 05/05/20 14:49 CAB [id number]) Pre-Anesthesia Assessment Patient Information Reviewed Via Chart Review Diagnostic Results BMP/CMP,CBC Comment Labs @ [facility], COVID screen @ [facility] 05/05/20 Negative Primary Care Provider Vinicio Boothe Seen Specialist in Last 12 Months Yes Specialist Seen General surgeon Primary Language [facility] Coordinator Required No Height 154.94 cm Weight 83.007 kg Body Mass Index (BMI) 34.5 Hx Anesthesia Reactions No Hx Family Anesthesia Reaction No Hx Malignant Hyperthermia No Anesthesia Review Requested No Automatic Machines Supervisor No Smoking Status Never smoker Substance Use Type does not use Patient is completely paralyzed or No completely immobile Is patient on oxygen? No Does patient have POLLACK/SOB No Hx Sleep Apnea No Currently Taking a Beta Ivan No Hx Chest Pain No Hx SOB No Hx Syncope or Dizziness No Anti-Coagulant Therapy No Has a Optical Engineering Manager No Cardiac Testing No Hx Pacemaker/ICD No Pacemaker Rep Required? No Cardiac Clearance Received Not Applicable Urinary Catheter Present No Hx Urinary Self Catheterization No Diabetes No Patient No Lactating No Hx Drug Resistant Organism No Have you had any close contact with Unknown someone diagnosed with COVID-19? Marital Status Lives With spouse Patient Discharge Plan Description Return Home Advance Directives? No
--- NOTE | 2020-05-09 10:02 | PC.NURSE ---
VSS. Vinay pain. Will be discharged this morning, on way to pick her up. Drain management reviewed. She is independent with care.
== END 2020-05-09 10:39 | disposition home or self-care (01) ==
LOC: OR 07:01 → AC 07:02
PROVIDERS: PCP Family Medicine; Referring Provider Family Medicine; Visit Provider Specialist
PROC: 0HTU0ZZ Resection of Left Breast, Open Approach (ICD-10-PCS; CPT 19303; principal; 2020-05-08 10:15)
DX: C50.912 Malignant neoplasm of unspecified site of left female breast (principal); Z17.0 Estrogen receptor positive status [ER+]
CPT/HCPCS: 19303; 38525; 78195; A9541; J0690; J1100; J1170; J2405; J2704; J3010

== ENCOUNTER → 2020-06-16 10:05 | Outpatient (CLI) | payer MEDICARE, BC, SELFPAY ==
[2020-05-19 14:52] VITALS: BMI 34.0
== END ==
PROVIDERS: PCP Family Medicine; Referring Provider Internal Medicine; Visit Provider Internal Medicine
DX: M85.851 Other specified disorders of bone density and structure, right thigh (principal); Z78.0 Asymptomatic menopausal state; C50.912 Malignant neoplasm of unspecified site of left female breast
CPT/HCPCS: 77080

== ENCOUNTER → 2020-08-11 12:26 | Outpatient (CLI) | payer MEDICARE, BC, SELFPAY ==
[2020-05-19 14:52] VITALS: BMI 34.0
[2020-08-11] MEDS: COVID-19 VACC, Ad26(JANSSEN)/PF 0.5 ML IM (12:52)
== END ==
PROVIDERS: PCP Family Medicine; Visit Provider Internal Medicine
DX: Z23 Encounter for immunization (principal)
CPT/HCPCS: 0031A; 91303

== ENCOUNTER → 2021-03-03 12:18 | Outpatient (CLI) | payer MEDICARE, BC, SELFPAY ==
[2020-05-19 14:52] VITALS: BMI 34.0
--- NOTE | 2021-03-03 12:45 | DI.MG.S_ITS ---
UNILATERAL RIGHT DIGITAL SCREENING MAMMOGRAM 3D/2D WITH CAD POST MASTECTOMY: 03/03/2021 CLINICAL: Routine screening. Personal history of left breast cancer. Comparison is made to exams dated: 03/02/2020 mammogram, 03/01/2019 mammogram, and 02/20/2018 mammogram - [facility]. There are scattered fibroglandular elements in right breast. Current study was also evaluated with a Computer Aided Detection (CAD) system. There are benign calcifications in the right breast. There also are benign vascular calcifications in the right breast. No significant masses, calcifications, or other findings are seen in the breast. IMPRESSION: BENIGN There is no mammographic evidence of malignancy. A 1 year screening mammogram is recommended. Future imaging is recommended as follows: 03/17/2021 screening mammogram. This exam was interpreted at Station ID: [id number]. NOTE: For mammograms, a report in lay terms will be sent to the patient. Approximately 15% of breast malignancies will not be visualized mammographically. In the management of a palpable breast mass, a negative mammogram must not discourage biopsy of a clinically suspicious lesion. Electronically Signed By: Enmanuel caballero/toni:03/05/2021 08:02:23 letter sent: Normal Exam ACR BI-RADS Category 2: Benign Finding(s) 3342F
== END ==
PROVIDERS: PCP Family Medicine; Referring Provider Family Medicine; Visit Provider Family Medicine
DX: Z12.31 Encounter for screening mammogram for malignant neoplasm of breast (principal); Z85.3 Personal history of malignant neoplasm of breast
CPT/HCPCS: 77063; 77067

== ENCOUNTER → 2021-04-09 09:30 | Outpatient (CLI) | payer MEDICARE, BC, SELFPAY ==
[2020-05-19 14:52] VITALS: BMI 34.0
--- NOTE | 2021-04-09 09:32 | DI.RAD.S_ITS ---
PROCEDURE: XR HAND RT MIN 3V INDICATIONS: injury to R 3rd and 4th finger TECHNIQUE: 3 views of the hand(s) acquired. COMPARISON: None. FINDINGS: Bones: Minimally displaced oblique fracture of the mid and distal aspects of the middle phalanx of the 4th digit, extending to the distal interphalangeal joint. Mildly displaced oblique fracture of the proximal aspect of the distal phalanx of the 3rd digit with articular surface extension to the distal interphalangeal joint. Multifocal joint space narrowing and periarticular osteophyte formation at the scaphoid trapezial, 1st carpometacarpal joint, as well as the interphalangeal joints of the digits. Soft tissues: No suspicious soft tissue calcifications. IMPRESSION: 3rd and 4th digit fractures with articular surface extension. Dictated by: Jamie Pena M.D. on 04/09/2021 at 9:56 Approved by: Jamie Pena M.D. on 04/09/2021 at 9:57
== END ==
PROVIDERS: PCP Family Medicine; Referring Provider Physician Assistant; Visit Provider Physician Assistant
DX: S62.622A Displaced fracture of middle phalanx of right middle finger, initial encounter for closed fracture (principal); S62.624A Displaced fracture of middle phalanx of right ring finger, initial encounter for closed fracture; X58.XXXA Exposure to other specified factors, initial encounter
CPT/HCPCS: 73130

== ENCOUNTER → 2021-04-28 10:33 | Outpatient (CLI) | payer MEDICARE, BC, SELFPAY ==
[2020-05-19 14:52] VITALS: BMI 34.0
--- NOTE | 2021-04-28 10:36 | DI.RAD.S_ITS ---
PROCEDURE: XR KNEE LT 3V INDICATIONS: left knee pain TECHNIQUE: 3 views of the knee were acquired. COMPARISON: [facility], , KNEE 3V RIGHT, 05/07/2012, 16:27. FINDINGS: Bones: No fractures or dislocations. No suspicious bony lesions. There is mild medial femorotibial joint space narrowing seen, with associated remodeling changes including subchondral sclerosis and osteophyte formation along the jointline. On the sunrise view, there is mild patellofemoral joint space narrowing seen. Osteophyte formation can be seen along the margins of the patella. Soft tissues: No joint effusion. No suspicious soft tissue calcifications. IMPRESSION: Generalized degenerative changes can be seen of the left knee, which are more prominent than in 2012. If it would be helpful for clinical management decision making, please consider a dedicated, scheduled knee MRI for further evaluation (assuming that there is no contraindication). Dictated by: Maurice Kendall M.D. on 04/28/2021 at 10:00 Approved by: Maurice Kendall M.D. on 04/28/2021 at 10:01
== END ==
PROVIDERS: PCP Family Medicine; Referring Provider Physician Assistant; Visit Provider Physician Assistant
DX: M25.562 Pain in left knee (principal)
CPT/HCPCS: 73562

== ENCOUNTER → 2021-05-31 13:38 | Outpatient (CLI) | payer MEDICARE, BC, SELFPAY ==
[2020-05-19 14:52] VITALS: BMI 34.0
--- NOTE | 2021-05-31 13:40 | DI.MRI.S_ITS ---
PROCEDURE: MR KNEE LT WO CON INDICATIONS: Persistent left knee pain, concern for MCL sprain, meniscal TECHNIQUE: Noncontrast sagittal PD fast spin echo and T2 fast spin echo with fat saturation, sagittal 3-D FLASH with fat saturation; coronal T1 spin echo and PD fast spin echo with fat saturation, and axial PD fast spin echo with fat saturation through the knee. COMPARISON: None. FINDINGS: Image quality: Excellent. Menisci: Surfacing signal in the posterior horn, medial meniscus (8-10; 11-21), compatible with tear. The lateral meniscus is intact. Cruciate ligaments: The anterior and posterior cruciate ligaments appear intact. Medial structures: The medial collateral ligament appears intact. The visualized portions of the pes anserinus tendons appear normal. Trace bursal fluid. Lateral structures: The lateral collateral ligament complex is intact. The popliteus tendon appears normal. The iliotibial band appears normal. Anterior structures: The quadriceps and patellar tendons appear intact. Patellar alignment is normal. No femoral trochlear dysplasia or ventral trochlear prominence. No edema in the infrapatellar fat pad. Bones and cartilage: The cartilage of the medial and lateral femorotibial compartments is maintained. Deficiency and heterogeneity of the patellofemoral compartment hyaline cartilage with small foci of subchondral edema. The largest lesion is seen in the medial trochlea, measuring up to 8.6 mm. Joint space: There is physiologic knee joint fluid. Trace fluid in the popliteal fossa. IMPRESSION: 1. Horizontal tear in the posterior horn, medial meniscus. 2. 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 Dictated by: Evaristo Godinez M.D. on 05/31/2021 at 14:17 Approved by: Evaristo Godinez M.D. on 05/31/2021 at 14:27
== END ==
PROVIDERS: PCP Family Medicine; Referring Provider Family Medicine; Visit Provider Family Medicine
DX: S83.242A Other tear of medial meniscus, current injury, left knee, initial encounter (principal); M22.42 Chondromalacia patellae, left knee
CPT/HCPCS: 73721

== ENCOUNTER → 2021-06-11 15:35 | Outpatient (CLI) | payer MEDICARE, BC, SELFPAY ==
[2020-05-19 14:52] VITALS: BMI 34.0
[2021-06-11 16:06] LABS: Add Manual Diff / Slide Review NO; Basophils Absolute Auto 100 /uL (0-100); Basophils Percent Auto 0.9 % (0-2); Eosinophils Absolute Auto 200 /uL (0-450); Eosinophils Percent Auto 2.8 % (2-4); Hematocrit 42.3 % (36-46); Hemoglobin 14.4 g/dL (12.0-16.0); Lymphocytes Absolute Auto 2500 /uL (1100-4500); Lymphocytes Percent Auto 33.7 % (25-40); Mean Corpuscular HGB Conc 34.1 % (30-36); Mean Corpuscular Volume 93.9 fL (80-100); Monocytes Absolute Auto 600 /uL (0-900); Monocytes Percent Auto 8.4 % (3-14); Neutrophils Absolute Auto 4000 /uL (1500-7000); Neutrophils Percent Auto 54.2 % (50-75); Platelet Count 338 X10^3/uL (150-400); Red Blood Cell Count 4.51 X10^6/uL (4.0-5.2); Red Cell Distribution Width 13.4 % (11.6-14.8); White Blood Cell Count 7.4 X10^3/uL (4.5-11.0)
[2021-06-11 17:04] LABS: Alanine Aminotransferase 33 IU/L (<35); Albumin 4.3 g/dL (3.5-5.0); Albumin Globulin Ratio 1.2 (1.0-2.8); Alkaline Phosphatase 87 U/L (38-126); Aspartate Aminotransferase 35 IU/L (14-36); BUN Creatinine Ratio 20.8 (6-22); Bilirubin Total 0.3 mg/dL (0.2-1.3); Blood Urea Nitrogen 15 mg/dL (7-17); Calcium 9.8 mg/dL (8.4-10.2); Carbon Dioxide 28 mmol/L (22-32); Chloride 108 mmol/L (98-107); Cholesterol 235 mg/dL (140-199); Estimated Glomerular Filt Rate > 60.0 mL/min (>60); Globulin 3.7 g/dL (1.7-4.1); Glucose 91 mg/dL (80-110); HDL Cholesterol 62 mg/dL (40-60); HEMOLYSIS < 15 (0-50); LDL Cholesterol Calculated 131 mg/dL (<100); Potassium 3.9 mmol/L (3.4-5.1); Sodium 139 mmol/L (137-145); Triglycerides 210 mg/dL (35-150)
[2021-06-11 17:33] LABS: TSH w/ Reflex to FT4 1.96 uIU/mL (0.47-4.68)
== END ==
PROVIDERS: Family Provider Family Medicine; PCP Family Medicine; Referring Provider Family Medicine; Visit Provider Family Medicine
DX: E78.2 Mixed hyperlipidemia (principal); C50.912 Malignant neoplasm of unspecified site of left female breast
CPT/HCPCS: 36415; 80053; 80061; 84443; 85025

== ENCOUNTER 2021-07-12 13:45 | Outpatient (RCR) | payer MEDICARE, BC, SELFPAY ==
[2020-05-19 14:52] VITALS: BMI 34.0
--- NOTE | 2021-06-26 15:27 | PT.OIE ---
Current Diagnoses Pain in left knee (06/26/21) Other tear of medial meniscus, current injury, left knee, subsequent encounter (06/26/21) Sprain of medial collateral ligament of left knee, initial encounter (06/26/21) Past Medical History (Last Updated 06/11/21 @ 15:42 by Andrea Rodriguez DO) Arthritis of knee (2003) BCC (basal cell carcinoma of skin) (08/1981) Breast cancer, left Cataract (2011) CTS (carpal tunnel syndrome) (11/2015) H/O mastectomy History of colon polyps History of colonoscopy History of ovarian cystectomy (07/1976) History of removal of skin mole (10/1981) Hx of left breast biopsy Hyperlipidemia MCL sprain of left knee Retinal detachment (11/2015) Tinnitus Well adult exam Past Surgical History (Last Updated 06/11/21 @ 15:15 by Andrea Rodriguez DO) Anesthesia H/O mastectomy History of colonoscopy History of ovarian cystectomy (07/1976) History of removal of skin mole (10/1981) Hx of left breast biopsy Visit Care Team Role Provider Type Andrea Rodriguez DO Attending Provider Physician Family Provider Primary Care Provider Referring Provider Specialty: [facility] Practice Address: [address] [place] [address] Email: [email or web address] Initial Evaluation PT-OP-A Visit Information Start: 06/07/21 13:11 Freq: Status: Active Protocol: Document 06/26/21 09:00 AMB (Rec: 06/26/21 13:27 AMB [id number]) Out-Patient Physical Therapy Visit Information Visit Information Visit Type Initial Evaluation Visit Start Time 09:00 Visit Stop Time 09:45 Total Visit Minutes 45 Visit Number 1 PT-OP-B Current Condition Start: 06/07/21 13:11 Freq: Status: Active Protocol: Document 06/26/21 09:00 AMB (Rec: 06/26/21 09:14 AMB [id number]) Current Condition History of Current Condition Onset Date March Current Complaints L knee pain History of Current Condition L knee pain began at the kitchen sink. Had been walking the dog about a mile- hilly and now that is painful. Pain with walking the dog and has had to cut back on those walks. Bending the knee hurts. Twisting the knee hurts. Does have history of hip OA. R knee feels fine. Has not been icing. Prior Treatments and Tests MRI- meniscus tear medial/ posterior horn Treatment Goals Patient/Caregiver Goals Walk without knee pain Prior Functional Status Baseline Function- ADL's Independent Baseline Function- Mobility Independent Current Functional Impairments (Reported) Functional Limitations- ADL's Pain at night, limited walking due to pain, pain with stairs Personal Factors Other Personal Factors That May Effect Hx Breast CA, hip OA Therapy/Recovery PT-OP-C Subjective Start: 06/07/21 13:11 Freq: Status: Active Protocol: Document 06/26/21 09:00 AMB (Rec: 06/26/21 13:34 AMB [id number]) Patient Questionnaires Lower Extremity Functional Scale LEFS Score 43 LEFS Impairment 40 to 59% Impaired (Score 32- 47) OP-PT Pain Assessment Comments Pain Comments Medial L knee 6-7 at night, 3- 4 during the day PT-OP-G Mobility & Gait Start: 06/07/21 13:11 Freq: Status: Active Protocol: Document 06/26/21 09:00 AMB (Rec: 06/26/21 13:43 AMB [id number]) OP Gait Assessment Comments Gait Comments Jennifer ambulates without AD, without visible antalgia PT-OP-J Posture/Palpation/Skin Start: 06/07/21 13:11 Freq: Status: Active Protocol: Document 06/26/21 09:00 AMB (Rec: 06/26/21 13:43 AMB [id number]) Palpation Assessment Location One Palpation Location left knee Palpation Findings Tenderness Palpation Details Multiple tender points along medial joint line. No pain at popliteal fossa, no pain with patellar mobility testing. PT-OP-K Range of Motion Start: 06/07/21 13:11 Freq: Status: Active Protocol: Document 06/26/21 09:00 AMB (Rec: 06/26/21 13:43 AMB [id number]) Knee Goniometric Range of Motion Knee Right Patient Position Supine Flexion Active (degrees) 127 Extension Active (degrees) 0 Left Patient Position Supine Flexion Active (degrees) 120 Extension Passive (degrees) 3 PT-OP-M Strength Start: 06/07/21 13:11 Freq: Status: Active Protocol: Document 06/26/21 09:00 AMB (Rec: 06/26/21 13:43 AMB [id number]) Hip Strength Hip Manual Muscle Testing Right Flexion (L2) 4+ Good+ Extension (S1) 4+ Good+ Abduction 4+ Good+ Left Flexion (L2) 4+ Good+ Extension (S1) 4 Good Abduction 4 Good Knee Strength Knee Manual Muscle Testing Right Flexion (S2) 5 Normal Extension (L3) 5 Normal Left Flexion (S2) 4+ Good+ Extension (L3) 4+ Good+ PT-OP-Q Treatments Start: 06/07/21 13:11 Freq: Status: Active Protocol: Document 06/26/21 09:00 AMB (Rec: 06/26/21 13:30 AMB [id number]) Therapeutic Exercises Supine Exercises SLR Side left Reps/Minutes 2x210 Comments cued TA Sitting Exercises squats Sitting Exercise Name sit to stand Reps/Minutes 10 Therapeutic Activity Therapeutic Activity 1 Name body mechanics Comments avoiding twisting, lifting feet and stepping rather than pivoting Manual Therapy Treatment Taping 1 Body Location L knee Type of Tape Kinesio Tape Comments 2 Y strips, distal to proximal and lateral to medial PT-OP-T Assessment and Plan Start: 06/07/21 13:11 Freq: Status: Active Protocol: Document 06/26/21 09:00 AMB (Rec: 06/26/21 15:22 AMB [id number]) Physical Therapy Assessment Rehab Potential Rehabilitation Potential Good Evaluation Complexity Number of Personal Factors/Comorbidities 1-2 Number of Body Systems Impaired 4 or More Clinical Presentation at Evaluation Stable Impairments Impairments Functional Activities,Gait,ROM ,Strength Goals Three Impairment Stairs Short Term Goal (STG) Jennifer will ascend and descend a flight of stairs without an increase in pain. STG Duration 4 weeks Two Impairment ROM Short Term Goal (STG) Jennifer will improve her knee range to 0-125. STG Duration 4 weeks One Impairment Knee pain Short Term Goal (STG) Jennifer will ambulate for 1/2 mile without knee pain. STG Duration 4 weeks Assisted Goal (LTG) Jennifer will ambulate for 1 mile over uneven surfaces without an increase in knee pain. LTG Duration 8 weeks Assessment Summary Assessment Jennifer attends physical therapy with known medial meniscus tear and patellofemoral impairment. This has resulted in difficulty with stairs and gait. Her knee strength is well maintained, with some hip weakness. She will benefit from physical therapy for instruction in body mechanics, strengthening, and instruction in how to return to her previous level of function. Physical Therapy Plan Frequency and Duration Frequency of Treatment 2x/Week Duration of Treatment 8 weeks Plan of Care Start Date 06/26/21 Plan of Care End Date 08/14/21 Therapeutic Interventions Therapeutic Interventions Gait Training,Home Exercise Program,Joint Mobilizations, Manual Therapy,Neuromuscular Re-education,Self-Care/Home Management,Therapeutic Activities,Therapeutic Exercises Modalities Cold Pack/Ice Massage,Electric Stimulation,Hot Packs Next Visit Focus/Plan Next Note Type Treatment Note Next Visit Plan Follow up on kinesiotape, SLR and mini squats (sit to stand)
--- NOTE | 2021-06-26 15:27 | PT.OPPOC ---
Physical, Occupational [facility] Speech Therapy At [facility] Current Diagnoses Pain in left knee (06/26/21) Other tear of medial meniscus, current injury, left knee, subsequent encounter (06/26/21) Sprain of medial collateral ligament of left knee, initial encounter (06/26/21) Visit Care Team Role Provider Type Andrea Rodriguez DO Attending Provider Physician Family Provider Primary Care Provider Referring Provider Specialty: Family Practice Address: [address] [place] [address], [facility] Email: [email or web address] Of Care PT-OP-T Assessment and Plan Start: 06/07/21 13:11 Freq: Status: Active Protocol: Document 06/26/21 09:00 AMB (Rec: 06/26/21 15:22 AMB [id number]) Physical Therapy Assessment Rehab Potential Rehabilitation Potential Good Evaluation Complexity Number of Personal Factors/Comorbidities 1-2 Number of Body Systems Impaired 4 or More Clinical Presentation at Evaluation Stable Impairments Impairments Functional Activities,Gait,ROM ,Strength Goals Three Impairment Stairs Short Term Goal (STG) Jennifer will ascend and descend a flight of stairs without an increase in pain. STG Duration 4 weeks Two Impairment ROM Short Term Goal (STG) Jennifer will improve her knee range to 0-125. STG Duration 4 weeks One Impairment Knee pain Short Term Goal (STG) Jennifer will ambulate for 1/2 mile without knee pain. STG Duration 4 weeks [employer] Goal (LTG) Jennifer will ambulate for 1 mile over uneven surfaces without an increase in knee pain. LTG Duration 8 weeks Assessment Summary Assessment Jennifer attends physical therapy with known medial meniscus tear and patellofemoral impairment. This has resulted in difficulty with stairs and gait. Her knee strength is well maintained, with some hip weakness. She will benefit from physical therapy for instruction in body mechanics, strengthening, and instruction in how to return to her previous level of function. Physical Therapy Plan Frequency and Duration Frequency of Treatment 2x/Week Duration of Treatment 8 weeks Plan of Care Start Date 06/26/21 Plan of Care End Date 08/14/21 Therapeutic Interventions Therapeutic Interventions Gait Training,Home Exercise Program,Joint Mobilizations, Manual Therapy,Neuromuscular Re-education,Self-Care/Home Management,Therapeutic Activities,Therapeutic Exercises Modalities Cold Pack/Ice Massage,Electric Stimulation,Hot Packs Next Visit Focus/Plan Next Note Type Treatment Note Next Visit Plan Follow up on kinesiotape, SLR and mini squats (sit to stand) Plan of Care Dates Plan of Care Start Date 06/26/21 Plan of Care End Date 08/14/21 Electronically Signed by: Citlaly Frazier, PT 06/26/21 0192 Please Sign and Return: I have reviewed this Plan of Care and certify that the skilled therapy services above are required to meet the patient?s needs. Physician Signature Date Printed Name and Credentials Clinical Instructor Signature Printed Name and Credentials
--- NOTE | 2021-06-28 15:52 | PT.OTN ---
Current Diagnoses Pain in left knee (06/28/21) Other tear of medial meniscus, current injury, left knee, subsequent encounter (06/28/21) Sprain of medial collateral ligament of left knee, initial encounter (06/28/21) Physical Therapy Treatment Note PT-OP-A Visit Information Start: 06/07/21 13:11 Freq: Status: Active Protocol: Document 06/28/21 13:45 AMB (Rec: 06/28/21 14:02 AMB [id number]) Out-Patient Physical Therapy Visit Information Visit Information Visit Type Treatment Note Visit Start Time 13:45 Visit Stop Time 14:30 Total Visit Minutes 45 Visit Number 2 PT-OP-B Current Condition Start: 06/07/21 13:11 Freq: Status: Active Protocol: Document 06/26/21 09:00 AMB (Rec: 06/26/21 09:14 AMB [id number]) Current Condition History of Current Condition Onset Date March Current Complaints L knee pain History of Current Condition L knee pain began at the kitchen sink. Had been walking the dog about a mile- hilly and now that is painful. Pain with walking the dog and has had to cut back on those walks. Bending the knee hurts. Twisting the knee hurts. Does have history of hip OA. R knee feels fine. Has not been icing. Prior Treatments and Tests MRI- meniscus tear medial/ posterior horn Treatment Goals Patient/Caregiver Goals Walk without knee pain Prior Functional Status Baseline Function- ADL's Independent Baseline Function- Mobility Independent Current Functional Impairments (Reported) Functional Limitations- ADL's Pain at night, limited walking due to pain, pain with stairs Personal Factors Other Personal Factors That May Effect Hx Breast CA, hip OA Therapy/Recovery PT-OP-C Subjective Start: 06/07/21 13:11 Freq: Status: Active Protocol: Document 06/28/21 13:45 AMB (Rec: 06/28/21 14:02 AMB [id number]) OP-PT Subjective Patient Comments Patient Comments Sitting and sleeping are painful, but walking is feeling a lot better. Likes the taping. PT-OP-G Mobility & Gait Start: 06/07/21 13:11 Freq: Status: Active Protocol: Document 06/26/21 09:00 AMB (Rec: 06/26/21 13:43 AMB [id number]) OP Gait Assessment Comments Gait Comments Jennifer ambulates without AD, without visible antalgia PT-OP-J Posture/Palpation/Skin Start: 06/07/21 13:11 Freq: Status: Active Protocol: Document 06/26/21 09:00 AMB (Rec: 06/26/21 13:43 AMB [id number]) Palpation Assessment Location One Palpation Location left knee Palpation Findings Tenderness Palpation Details Multiple tender points along medial joint line. No pain at popliteal fossa, no pain with patellar mobility testing. PT-OP-K Range of Motion Start: 06/07/21 13:11 Freq: Status: Active Protocol: Document 06/26/21 09:00 AMB (Rec: 06/26/21 13:43 AMB [id number]) Knee Goniometric Range of Motion Knee Right Patient Position Supine Flexion Active (degrees) 127 Extension Active (degrees) 0 Left Patient Position Supine Flexion Active (degrees) 120 Extension Passive (degrees) 3 PT-OP-M Strength Start: 06/07/21 13:11 Freq: Status: Active Protocol: Document 06/26/21 09:00 AMB (Rec: 06/26/21 13:43 AMB [id number]) Hip Strength Hip Manual Muscle Testing Right Flexion (L2) 4+ Good+ Extension (S1) 4+ Good+ Abduction 4+ Good+ Left Flexion (L2) 4+ Good+ Extension (S1) 4 Good Abduction 4 Good Knee Strength Knee Manual Muscle Testing Right Flexion (S2) 5 Normal Extension (L3) 5 Normal Left Flexion (S2) 4+ Good+ Extension (L3) 4+ Good+ PT-OP-Q Treatments Start: 06/07/21 13:11 Freq: Status: Active Protocol: Document 06/28/21 13:45 AMB (Rec: 06/28/21 14:02 AMB [id number]) Cardio Equipment Recumbent Bicycle Duration (Minutes) 5 Resistance 4 Seat Position 1 Gym Equipment Shuttle Recovery Unilateral Squats Details 25 Shuttle Recovery Platform Stable Reps/Time 1x10 Bilateral Squats Details 50 Shuttle Recovery Platform Stable Reps/Time 2x10 Therapeutic Exercises Supine Exercises abduction Reps/Minutes 10 Comments cued form bridge Reps/Minutes 10 SLR Side left Reps/Minutes 2x210 Comments cued TA Sitting Exercises squats Sitting Exercise Name sit to stand Reps/Minutes 10 Manual Therapy Treatment Soft Tissue Mobilization 1 Body Location medial/posterior knee Mobilization Type Cross-Friction,Sustained Pressure Intensity/Depth Superficial Body Position Supine Taping 1 Body Location L knee Type of Tape Kinesio Tape Comments 2 Y strips, distal to proximal and lateral to medial PT-OP-R Modalities Start: 06/07/21 13:11 Freq: Status: Active Protocol: Document 06/28/21 13:45 AMB (Rec: 06/28/21 15:50 AMB [id number]) Hot Pack/Cold Pack Treatment Cold Pack Location knee (L) Patient Position Hooklying Treatment Duration (minutes) 10 PT-OP-T Assessment and Plan Start: 06/07/21 13:11 Freq: Status: Active Protocol: Document 06/28/21 13:45 AMB (Rec: 06/28/21 15:52 AMB [id number]) Physical Therapy Assessment Assessment Summary Assessment Did not progress HEP today, but could consider at next visit, given pt's tolerance. Open chain movement does create pain at times, but Jennifer has been good about avoiding twisting pivoting movements at home. She liked the ktape, but will need to work more on closed chain quad /glute strengthening. Physical Therapy Plan Next Visit Focus/Plan Next Note Type Treatment Note Next Visit Plan Follow up on kinesiotape, SLR and mini squats (sit to stand) , consider adding bridge to HEP.
--- NOTE | 2021-07-03 15:42 | PT.OTN ---
Current Diagnoses Pain in left knee (07/03/21) Other tear of medial meniscus, current injury, left knee, subsequent encounter (07/03/21) Sprain of medial collateral ligament of left knee, initial encounter (07/03/21) Physical Therapy Treatment Note PT-OP-A Visit Information Start: 06/07/21 13:11 Freq: Status: Active Protocol: Document 07/03/21 13:45 AMB (Rec: 07/03/21 14:30 AMB [id number]) Out-Patient Physical Therapy Visit Information Visit Information Visit Type Treatment Note Visit Start Time 13:45 Visit Stop Time 14:30 Total Visit Minutes 45 Visit Number 3 PT-OP-B Current Condition Start: 06/07/21 13:11 Freq: Status: Active Protocol: Document 06/26/21 09:00 AMB (Rec: 06/26/21 09:14 AMB [id number]) Current Condition History of Current Condition Onset Date March Current Complaints L knee pain History of Current Condition L knee pain began at the kitchen sink. Had been walking the dog about a mile- [place] and now that is painful. Pain with walking the dog and has had to cut back on those walks. Bending the knee hurts. Twisting the knee hurts. Does have history of hip OA. R knee feels fine. Has not been icing. Prior Treatments and Tests MRI- meniscus tear medial/ posterior horn Treatment Goals Patient/Caregiver Goals Walk without knee pain Prior Functional Status Baseline Function- ADL's Independent Baseline Function- Mobility Independent Current Functional Impairments (Reported) Functional Limitations- ADL's Pain at night, limited walking due to pain, pain with stairs Personal Factors Other Personal Factors That May Effect Hx Breast CA, hip OA Therapy/Recovery PT-OP-C Subjective Start: 06/07/21 13:11 Freq: Status: Active Protocol: Document 07/03/21 13:45 AMB (Rec: 07/03/21 14:30 AMB [id number]) OP-PT Subjective Patient Comments Patient Comments Walking has been going much better. Lying on the side is ok, but needs a pillow between . PT-OP-G Mobility & Gait Start: 06/07/21 13:11 Freq: Status: Active Protocol: Document 06/26/21 09:00 AMB (Rec: 06/26/21 13:43 AMB [id number]) OP Gait Assessment Comments Gait Comments Jennifer ambulates without AD, without visible antalgia PT-OP-J Posture/Palpation/Skin Start: 06/07/21 13:11 Freq: Status: Active Protocol: Document 06/26/21 09:00 AMB (Rec: 06/26/21 13:43 AMB [id number]) Palpation Assessment Location One Palpation Location left knee Palpation Findings Tenderness Palpation Details Multiple tender points along medial joint line. No pain at popliteal fossa, no pain with patellar mobility testing. PT-OP-K Range of Motion Start: 06/07/21 13:11 Freq: Status: Active Protocol: Document 06/26/21 09:00 AMB (Rec: 06/26/21 13:43 AMB [id number]) Knee Goniometric Range of Motion Knee Right Patient Position Supine Flexion Active (degrees) 127 Extension Active (degrees) 0 Left Patient Position Supine Flexion Active (degrees) 120 Extension Passive (degrees) 3 PT-OP-M Strength Start: 06/07/21 13:11 Freq: Status: Active Protocol: Document 06/26/21 09:00 AMB (Rec: 06/26/21 13:43 AMB [id number]) Hip Strength Hip Manual Muscle Testing Right Flexion (L2) 4+ Good+ Extension (S1) 4+ Good+ Abduction 4+ Good+ Left Flexion (L2) 4+ Good+ Extension (S1) 4 Good Abduction 4 Good Knee Strength Knee Manual Muscle Testing Right Flexion (S2) 5 Normal Extension (L3) 5 Normal Left Flexion (S2) 4+ Good+ Extension (L3) 4+ Good+ PT-OP-Q Treatments Start: 06/07/21 13:11 Freq: Status: Active Protocol: Document 07/03/21 13:45 AMB (Rec: 07/03/21 14:30 AMB [id number]) Cardio Equipment Recumbent Elliptical ([employer]) Duration (Minutes) 5 Resistance 4 Therapeutic Exercises Supine Exercises abduction Reps/Minutes 10 Comments cued form bridge Reps/Minutes 10 SLR Side left Reps/Minutes 2x210 Comments cued TA Sitting Exercises squats Sitting Exercise Name sit to stand Reps/Minutes 10 Manual Therapy Treatment Soft Tissue Mobilization 1 Body Location medial/posterior knee Mobilization Type Cross-Friction,Sustained Pressure Intensity/Depth Superficial Body Position Supine PT-OP-R Modalities Start: 06/07/21 13:11 Freq: Status: Active Protocol: Document 06/28/21 13:45 AMB (Rec: 06/28/21 15:50 AMB [id number]) Hot Pack/Cold Pack Treatment Cold Pack Location knee (L) Patient Position Hooklying Treatment Duration (minutes) 10 PT-OP-T Assessment and Plan Start: 06/07/21 13:11 Freq: Status: Active Protocol: Document 07/03/21 13:45 AMB (Rec: 07/03/21 14:30 AMB [id number]) Physical Therapy Assessment Goals Three Impairment Stairs Short Term Goal (STG) Jennifer will ascend and descend a flight of stairs without an increase in pain. STG Duration 4 weeks Two Impairment ROM Short Term Goal (STG) Jennifer will improve her knee range to 0-125. STG Duration 4 weeks One Impairment Knee pain Short Term Goal (STG) Jennifer will ambulate for 1/2 mile without knee pain. STG Duration 4 weeks Mcc Goal (LTG) Jennifer will ambulate for 1 mile over uneven surfaces without an increase in knee pain. LTG Duration 8 weeks Assessment Summary Assessment Provided with written HEP progression and educated in application of k tape as pt purchased her own. She has found the taping very helpful, as well as the education to avoid pivoting on her knee. Physical Therapy Plan Next Visit Focus/Plan Next Note Type Treatment Note Next Visit Plan Progress closed chain strengthening for return to stairs/gait
--- NOTE | 2021-07-05 16:00 | PT.OTN ---
Current Diagnoses Pain in left knee (07/05/21) Other tear of medial meniscus, current injury, left knee, subsequent encounter (07/05/21) Sprain of medial collateral ligament of left knee, initial encounter (07/05/21) Physical Therapy Treatment Note PT-OP-A Visit Information Start: 06/07/21 13:11 Freq: Status: Active Protocol: Document 07/05/21 14:04 AMB (Rec: 07/05/21 15:27 AMB [id number]) Out-Patient Physical Therapy Visit Information Visit Information Visit Type Treatment Note Visit Start Time 14:00 Visit Stop Time 14:30 Total Visit Minutes 30 Visit Number 4 PT-OP-B Current Condition Start: 06/07/21 13:11 Freq: Status: Active Protocol: Document 06/26/21 09:00 AMB (Rec: 06/26/21 09:14 AMB [id number]) Current Condition History of Current Condition Onset Date March Current Complaints L knee pain History of Current Condition L knee pain began at the kitchen sink. Had been walking the dog about a mile- hilly and now that is painful. Pain with walking the dog and has had to cut back on those walks. Bending the knee hurts. Twisting the knee hurts. Does have history of hip OA. R knee feels fine. Has not been icing. Prior Treatments and Tests MRI- meniscus tear medial/ posterior horn Treatment Goals Patient/Caregiver Goals Walk without knee pain Prior Functional Status Baseline Function- ADL's Independent Baseline Function- Mobility Independent Current Functional Impairments (Reported) Functional Limitations- ADL's Pain at night, limited walking due to pain, pain with stairs Personal Factors Other Personal Factors That May Effect Hx Breast CA, hip OA Therapy/Recovery PT-OP-C Subjective Start: 06/07/21 13:11 Freq: Status: Active Protocol: Document 07/05/21 14:04 AMB (Rec: 07/05/21 15:27 AMB [id number]) OP-PT Subjective Patient Comments Patient Comments Stairs are not a problem at all PT-OP-G Mobility & Gait Start: 06/07/21 13:11 Freq: Status: Active Protocol: Document 06/26/21 09:00 AMB (Rec: 06/26/21 13:43 AMB [id number]) OP Gait Assessment Comments Gait Comments Jennifer ambulates without AD, without visible antalgia PT-OP-J Posture/Palpation/Skin Start: 06/07/21 13:11 Freq: Status: Active Protocol: Document 06/26/21 09:00 AMB (Rec: 06/26/21 13:43 AMB [id number]) Palpation Assessment Location One Palpation Location left knee Palpation Findings Tenderness Palpation Details Multiple tender points along medial joint line. No pain at popliteal fossa, no pain with patellar mobility testing. PT-OP-K Range of Motion Start: 06/07/21 13:11 Freq: Status: Active Protocol: Document 06/26/21 09:00 AMB (Rec: 06/26/21 13:43 AMB [id number]) Knee Goniometric Range of Motion Knee Right Patient Position Supine Flexion Active (degrees) 127 Extension Active (degrees) 0 Left Patient Position Supine Flexion Active (degrees) 120 Extension Passive (degrees) 3 PT-OP-M Strength Start: 06/07/21 13:11 Freq: Status: Active Protocol: Document 06/26/21 09:00 AMB (Rec: 06/26/21 13:43 AMB [id number]) Hip Strength Hip Manual Muscle Testing Right Flexion (L2) 4+ Good+ Extension (S1) 4+ Good+ Abduction 4+ Good+ Left Flexion (L2) 4+ Good+ Extension (S1) 4 Good Abduction 4 Good Knee Strength Knee Manual Muscle Testing Right Flexion (S2) 5 Normal Extension (L3) 5 Normal Left Flexion (S2) 4+ Good+ Extension (L3) 4+ Good+ PT-OP-Q Treatments Start: 06/07/21 13:11 Freq: Status: Active Protocol: Document 07/05/21 14:00 AMB (Rec: 07/08/21 10:11 AMB [id number]) Cardio Equipment Recumbent Elliptical (Biodex) Duration (Minutes) 5 Resistance 4 Therapeutic Exercises Supine Exercises abduction Reps/Minutes 10 Comments cued form SLR Side left Reps/Minutes 2x210 Comments cued TA Other Exercises 2 Other Exercise Name wes pose 1 Other Exercise Name floor transfer training Comments for gardening Manual Therapy Treatment Soft Tissue Mobilization 1 Body Location medial/posterior knee Mobilization Type Cross-Friction,Sustained Pressure Intensity/Depth Superficial Body Position Supine Taping 1 Body Location L knee Type of Tape Kinesio Tape Comments 2 I strips PT-OP-R Modalities Start: 06/07/21 13:11 Freq: Status: Active Protocol: Document 06/28/21 13:45 AMB (Rec: 06/28/21 15:50 AMB [id number]) Hot Pack/Cold Pack Treatment Cold Pack Location knee (L) Patient Position Hooklying Treatment Duration (minutes) 10 PT-OP-T Assessment and Plan Start: 06/07/21 13:11 Freq: Status: Active Protocol: Document 07/05/21 14:00 AMB (Rec: 07/08/21 10:11 AMB [id number]) Physical Therapy Assessment Goals Three Impairment Stairs Short Term Goal (STG) Jennifer will ascend and descend a flight of stairs without an increase in pain. STG Duration 4 weeks Two Impairment ROM Short Term Goal (STG) Jennifer will improve her knee range to 0-125. STG Duration 4 weeks One Impairment Knee pain Short Term Goal (STG) Jennifer will ambulate for 1/2 mile without knee pain. STG Duration 4 weeks Prison Goal (LTG) Jennifer will ambulate for 1 mile over uneven surfaces without an increase in knee pain. LTG Duration 8 weeks Assessment Summary Assessment Jennifer is feeling a lot better with k tape and being more aware of not pivoting on her knee. It takes a lot of work for her to think about not pivoting through the knee, but this has decreased her pain a lot. Physical Therapy Plan Next Visit Focus/Plan Next Note Type Treatment Note Next Visit Plan Review body mechanics with return to yardwork
--- NOTE | 2021-07-09 16:07 | PT.OTN ---
Current Diagnoses Pain in left knee (07/09/21) Other tear of medial meniscus, current injury, left knee, subsequent encounter (07/09/21) Sprain of medial collateral ligament of left knee, initial encounter (07/09/21) Physical Therapy Treatment Note PT-OP-A Visit Information Start: 06/07/21 13:11 Freq: Status: Active Protocol: Document 07/09/21 13:45 AMB (Rec: 07/09/21 14:31 AMB [id number]) Out-Patient Physical Therapy Visit Information Visit Information Visit Type Treatment Note Visit Start Time 13:45 Visit Stop Time 14:30 Total Visit Minutes 45 Visit Number 5 PT-OP-B Current Condition Start: 06/07/21 13:11 Freq: Status: Active Protocol: Document 06/26/21 09:00 AMB (Rec: 06/26/21 09:14 AMB [id number]) Current Condition History of Current Condition Onset Date March Current Complaints L knee pain History of Current Condition L knee pain began at the kitchen sink. Had been walking the dog about a mile- hilly and now that is painful. Pain with walking the dog and has had to cut back on those walks. Bending the knee hurts. Twisting the knee hurts. Does have history of hip OA. R knee feels fine. Has not been icing. Prior Treatments and Tests MRI- meniscus tear medial/ posterior horn Treatment Goals Patient/Caregiver Goals Walk without knee pain Prior Functional Status Baseline Function- ADL's Independent Baseline Function- Mobility Independent Current Functional Impairments (Reported) Functional Limitations- ADL's Pain at night, limited walking due to pain, pain with stairs Personal Factors Other Personal Factors That May Effect Hx Breast CA, hip OA Therapy/Recovery PT-OP-C Subjective Start: 06/07/21 13:11 Freq: Status: Active Protocol: Document 07/09/21 13:45 AMB (Rec: 07/09/21 14:31 AMB [id number]) OP-PT Subjective Patient Comments Patient Comments Aware of the knees when standing on the foam at the kitchn sink. PT-OP-G Mobility & Gait Start: 06/07/21 13:11 Freq: Status: Active Protocol: Document 06/26/21 09:00 AMB (Rec: 06/26/21 13:43 AMB [id number]) OP Gait Assessment Comments Gait Comments Jennifer ambulates without AD, without visible antalgia PT-OP-J Posture/Palpation/Skin Start: 06/07/21 13:11 Freq: Status: Active Protocol: Document 06/26/21 09:00 AMB (Rec: 06/26/21 13:43 AMB [id number]) Palpation Assessment Location One Palpation Location left knee Palpation Findings Tenderness Palpation Details Multiple tender points along medial joint line. No pain at popliteal fossa, no pain with patellar mobility testing. PT-OP-K Range of Motion Start: 06/07/21 13:11 Freq: Status: Active Protocol: Document 06/26/21 09:00 AMB (Rec: 06/26/21 13:43 AMB [id number]) Knee Goniometric Range of Motion Knee Right Patient Position Supine Flexion Active (degrees) 127 Extension Active (degrees) 0 Left Patient Position Supine Flexion Active (degrees) 120 Extension Passive (degrees) 3 PT-OP-M Strength Start: 06/07/21 13:11 Freq: Status: Active Protocol: Document 06/26/21 09:00 AMB (Rec: 06/26/21 13:43 AMB [id number]) Hip Strength Hip Manual Muscle Testing Right Flexion (L2) 4+ Good+ Extension (S1) 4+ Good+ Abduction 4+ Good+ Left Flexion (L2) 4+ Good+ Extension (S1) 4 Good Abduction 4 Good Knee Strength Knee Manual Muscle Testing Right Flexion (S2) 5 Normal Extension (L3) 5 Normal Left Flexion (S2) 4+ Good+ Extension (L3) 4+ Good+ PT-OP-Q Treatments Start: 06/07/21 13:11 Freq: Status: Active Protocol: Document 07/09/21 13:45 AMB (Rec: 07/09/21 16:06 AMB [id number]) Cardio Equipment Recumbent Elliptical (Gamar) Duration (Minutes) 5 Resistance 4 Therapeutic Exercises Supine Exercises hip flexor stretch Reps/Minutes 30secx 4 hamstring stretch Reps/Minutes 30sec x 4 Sitting Exercises squats Sitting Exercise Name sit to stand Reps/Minutes 10 Standing Exercises 1 Standing Exercise Name calf stretch on Cheng and on stair Reps/Minutes 30x4 Manual Therapy Treatment Taping 1 Body Location L knee Type of Tape Kinesio Tape Comments 2 I strips PT-OP-R Modalities Start: 06/07/21 13:11 Freq: Status: Active Protocol: Document 06/28/21 13:45 AMB (Rec: 06/28/21 15:50 AMB [id number]) Hot Pack/Cold Pack Treatment Cold Pack Location knee (L) Patient Position Hooklying Treatment Duration (minutes) 10 PT-OP-T Assessment and Plan Start: 06/07/21 13:11 Freq: Status: Active Protocol: Document 07/09/21 13:45 AMB (Rec: 07/09/21 16:06 AMB [id number]) Physical Therapy Assessment Goals Three Impairment Stairs Short Term Goal (STG) Jennifer will ascend and descend a flight of stairs without an increase in pain. STG Duration 4 weeks Two Impairment ROM Short Term Goal (STG) Jennifer will improve her knee range to 0-125. STG Duration 4 weeks One Impairment Knee pain Short Term Goal (STG) Jennifer will ambulate for 1/2 mile without knee pain. STG Duration 4 weeks Field Training Manager Goal (LTG) Jennifer will ambulate for 1 mile over uneven surfaces without an increase in knee pain. LTG Duration 8 weeks Assessment Summary Assessment Pt has been doing well with stairs and getting down onto the ground. She feels she will likely be ready for d/c next visit. Physical Therapy Plan Next Visit Focus/Plan Next Note Type Treatment Note Next Visit Plan Review body mechanics with return to yardwork
--- NOTE | 2021-07-13 16:13 | PT.OTN ---
Current Diagnoses Pain in left knee (07/12/21) Other tear of medial meniscus, current injury, left knee, subsequent encounter (07/12/21) Sprain of medial collateral ligament of left knee, initial encounter (07/12/21) Physical Therapy Treatment Note PT-OP-A Visit Information Start: 06/07/21 13:11 Freq: Status: Active Protocol: Document 07/12/21 13:50 AMB (Rec: 07/12/21 14:25 AMB [id number]) Out-Patient Physical Therapy Visit Information Visit Information Visit Type Treatment Note Visit Start Time 13:45 Visit Stop Time 14:30 Total Visit Minutes 45 Visit Number 6 PT-OP-B Current Condition Start: 06/07/21 13:11 Freq: Status: Active Protocol: Document 06/26/21 09:00 AMB (Rec: 06/26/21 09:14 AMB [id number]) Current Condition History of Current Condition Onset Date March Current Complaints L knee pain History of Current Condition L knee pain began at the kitchen sink. Had been walking the dog about a mile- hilly and now that is painful. Pain with walking the dog and has had to cut back on those walks. Bending the knee hurts. Twisting the knee hurts. Does have history of hip OA. R knee feels fine. Has not been icing. Prior Treatments and Tests MRI- meniscus tear medial/ posterior horn Treatment Goals Patient/Caregiver Goals Walk without knee pain Prior Functional Status Baseline Function- ADL's Independent Baseline Function- Mobility Independent Current Functional Impairments (Reported) Functional Limitations- ADL's Pain at night, limited walking due to pain, pain with stairs Personal Factors Other Personal Factors That May Effect Hx Breast CA, hip OA Therapy/Recovery PT-OP-C Subjective Start: 06/07/21 13:11 Freq: Status: Active Protocol: Document 07/12/21 13:50 AMB (Rec: 07/12/21 14:25 AMB [id number]) OP-PT Subjective Patient Comments Patient Comments States pain at eval was a 10 and now a 1, ready for d/c. PT-OP-G Mobility & Gait Start: 06/07/21 13:11 Freq: Status: Active Protocol: Document 06/26/21 09:00 AMB (Rec: 06/26/21 13:43 AMB [id number]) OP Gait Assessment Comments Gait Comments Jennifer ambulates without AD, without visible antalgia PT-OP-J Posture/Palpation/Skin Start: 06/07/21 13:11 Freq: Status: Active Protocol: Document 06/26/21 09:00 AMB (Rec: 06/26/21 13:43 AMB [id number]) Palpation Assessment Location One Palpation Location left knee Palpation Findings Tenderness Palpation Details Multiple tender points along medial joint line. No pain at popliteal fossa, no pain with patellar mobility testing. PT-OP-K Range of Motion Start: 06/07/21 13:11 Freq: Status: Active Protocol: Document 06/26/21 09:00 AMB (Rec: 06/26/21 13:43 AMB [id number]) Knee Goniometric Range of Motion Knee Right Patient Position Supine Flexion Active (degrees) 127 Extension Active (degrees) 0 Left Patient Position Supine Flexion Active (degrees) 120 Extension Passive (degrees) 3 PT-OP-M Strength Start: 06/07/21 13:11 Freq: Status: Active Protocol: Document 06/26/21 09:00 AMB (Rec: 06/26/21 13:43 AMB [id number]) Hip Strength Hip Manual Muscle Testing Right Flexion (L2) 4+ Good+ Extension (S1) 4+ Good+ Abduction 4+ Good+ Left Flexion (L2) 4+ Good+ Extension (S1) 4 Good Abduction 4 Good Knee Strength Knee Manual Muscle Testing Right Flexion (S2) 5 Normal Extension (L3) 5 Normal Left Flexion (S2) 4+ Good+ Extension (L3) 4+ Good+ PT-OP-Q Treatments Start: 06/07/21 13:11 Freq: Status: Active Protocol: Document 07/12/21 13:50 AMB (Rec: 07/12/21 14:25 AMB [id number]) Cardio Equipment Recumbent Elliptical (Biodex) Duration (Minutes) 5 Resistance 4 Recumbent Bicycle Duration (Minutes) 5 Resistance 4 Seat Position 1 Gym Equipment Shuttle Recovery Bilateral Squats Details 50 Shuttle Recovery Platform Stable Reps/Time 3x10 Therapeutic Exercises Supine Exercises hip flexor stretch Reps/Minutes 30secx 4 hamstring stretch Reps/Minutes 30sec x 4 SLR Side left Reps/Minutes 2x210 Comments cued TA Sitting Exercises squats Sitting Exercise Name sit to stand Reps/Minutes 10 Standing Exercises 1 Standing Exercise Name calf stretch on Cheng and on stair Reps/Minutes 30x4 Manual Therapy Treatment Soft Tissue Mobilization 1 Body Location medial/posterior knee Mobilization Type Cross-Friction,Sustained Pressure Intensity/Depth Superficial Body Position Supine Other Other Manual Treatments rolling either tennis ball or rolling pin PT-OP-R Modalities Start: 06/07/21 13:11 Freq: Status: Active Protocol: Document 06/28/21 13:45 AMB (Rec: 06/28/21 15:50 AMB [id number]) Hot Pack/Cold Pack Treatment Cold Pack Location knee (L) Patient Position Hooklying Treatment Duration (minutes) 10 PT-OP-T Assessment and Plan Start: 06/07/21 13:11 Freq: Status: Active Protocol: Document 07/12/21 13:50 AMB (Rec: 07/12/21 14:25 AMB [id number]) Physical Therapy Assessment Goals Three Impairment Stairs Short Term Goal (STG) Jennifer will ascend and descend a flight of stairs without an increase in pain. STG Duration MET Two Impairment ROM Short Term Goal (STG) Jennifer will improve her knee range to 0-125. STG Duration PROGRESS MADE One Impairment Knee pain Short Term Goal (STG) Jennifer will ambulate for 1/2 mile without knee pain. STG Duration MET Skilled Nursing Goal (LTG) Jennifer will ambulate for 1 mile over uneven surfaces without an increase in knee pain. LTG Duration -guesstimates 3/4 mile Assessment Summary Assessment Jennifer is doing well. She feels almost normal, but still has about 10% of the pain that she did at eval. She is aware of her body mechanics, and is doing her exercises 2x/ day. She has learned how to tape her knee which she has found helpful, and feels ready for discharge at this time. Physical Therapy Plan Discharge Physical Therapy Discharge Reasons Goals Met
== END 2021-07-16 10:04 ==
LOC: PHYS 13:45
PROVIDERS: Family Provider Family Medicine; PCP Family Medicine; Referring Provider Family Medicine; Visit Provider Family Medicine
DX: S83.412A Sprain of medial collateral ligament of left knee, initial encounter (principal); S83.242D Other tear of medial meniscus, current injury, left knee, subsequent encounter; M25.562 Pain in left knee
CPT/HCPCS: 97110; 97140; 97161

== ENCOUNTER → 2022-01-28 07:54 | Outpatient (CLI) | payer MEDICARE, BC, SELFPAY ==
[2020-05-19 14:52] VITALS: BMI 34.0
== END ==
PROVIDERS: Family Provider Family Medicine; PCP Family Medicine; Visit Provider Student in an Organized Health Care Education/Training Program
DX: J02.9 Acute pharyngitis, unspecified (principal)
CPT/HCPCS: 87070

== ENCOUNTER → 2022-03-21 08:20 | Outpatient (CLI) | payer MEDICARE, BC, SELFPAY ==
[2020-05-19 14:52] VITALS: BMI 34.0
--- NOTE | 2022-03-21 | DI.MG.S_ITS ---
UNILATERAL RIGHT DIGITAL SCREENING MAMMOGRAM 3D/2D WITH CAD POST MASTECTOMY: 03/21/2022 CLINICAL: Routine screening. Personal history of left breast cancer. Comparison is made to exams dated: 03/02/2020 mammogram, 03/01/2019 mammogram, and 02/20/2018 mammogram - [facility]. There are scattered areas of fibroglandular density in the right breast (category b / 25%-50% glandular tissue). Current study was also evaluated with a Computer Aided Detection (CAD) system. There are benign calcifications in the right breast. There also are benign vascular calcifications in the right breast. No significant masses, calcifications, or other findings are seen in the breast. There has been no significant interval change. IMPRESSION: BENIGN There is no mammographic evidence of malignancy. A 1 year screening mammogram is recommended. This exam was interpreted at Station ID: [id number]. NOTE: For mammograms, a report in lay terms will be sent to the patient. Approximately 15% of breast malignancies will not be visualized mammographically. In the management of a palpable breast mass, a negative mammogram must not discourage biopsy of a clinically suspicious lesion. Electronically Signed By: Johnson Mancilla M.D., jr/toni:03/21/2022 13:18:00 letter sent: Normal Exam ACR BI-RADS Category 2: Benign Finding(s) [id number]
== END ==
PROVIDERS: Family Provider Family Medicine; PCP Family Medicine; Referring Provider Family Medicine; Visit Provider Family Medicine
DX: Z12.31 Encounter for screening mammogram for malignant neoplasm of breast (principal); Z85.3 Personal history of malignant neoplasm of breast
CPT/HCPCS: 77063; 77067

== ENCOUNTER → 2023-03-03 09:17 | Outpatient (CLI) | payer MEDICARE, BC, SELFPAY ==
[2020-05-19 14:52] VITALS: BMI 34.0
--- NOTE | 2023-03-03 | DI.RAD.S_ITS ---
Bone Density Report Name: AMBER MARI Age: 72 Sex: Female Ethnicity: White Date of : 1950 Indication: postmenopausal; screening for osteoporosis; Referring Provider: PAT PELLETIER Study: Bone densitometry was performed. Exam Date: March 03, 2023 Accession number: [id number] Bone Density: Region BMD T-score Z-score Classification AP Spine(L1-L4) 1.013 -0.3 2.0 Normal Femoral Neck (Left) 0.662 -1.7 0.3 Osteopenia Total Hip (Left) 0.883 -0.5 1.2 Normal Femoral Neck (Right) 0.656 -1.7 0.2 Osteopenia Total Hip (Right) 0.859 -0.7 1.0 Normal Total Hip Mean 0.871 -0.6 1.1 Normal World Health Organization criteria for BMD impression classify patients as: Normal (T-score at or above -1.0), Osteopenia (T-score between -1.0 and -2.5), or Osteoporosis (T-score at or below -2.5). 10-year Fracture Risk(1): Major Osteoporotic Fracture 11% Hip Fracture 2.0% Reported Risk Factors: [place] (), Neck BMD=0.656, BMI=34.0 (1) FRAX(R) Version 3.08. Fracture probability calculated for an untreated patient. Fracture probability may be lower if the patient has received treatment. Previous Exams: -- Region Exam Age BMD T-score BMD Change BMD Change Date g/cm2 vs Baseline vs Previous -- AP Spine (L1-L4) 03/03/2023 72 1.013 -0.3 -0.124 (-10.9%)# -0.124 (-10.9%)# 06/16/2020 70 1.136 0.8 Total Hip(Left) 03/03/2023 72 0.883 -0.5 0.029 (3.4%)# 0.029 (3.4%)# 06/16/2020 70 0.854 -0.7 Total Hip(Right) 03/03/2023 72 0.859 -0.7 0.038 (4.7%)# 0.038 (4.7%)# 06/16/2020 70 0.821 -1.0 -- *Denotes significance at 95% confidence level, LSC for AP Spine = 0.022 g/cm2, LSC for Total Hip = 0.027 g/cm2 # Denotes dissimilar scan types or analysis methods Impression: The patient has low bone mass, based on the Left Femoral Neck T-score. The patient has an estimated ten-year risk of hip fracture of 2% and an estimated ten-year risk of major fracture of 11%, based on the WHO FRAX algorithm. No significant bone loss was observed. Discussion: BONE DENSITY IS LOW AT ONE OR MORE SKELETAL SITES. This patient's lowest T-score is low at one or more skeletal sites. It meets the World Health Organization's (WHO) criteria for low bone mass (T-score between -1.0 and -2.5). The patient's 10-year risk of fracture as calculated by FRAX is less than the threshold where pharmacological therapy is recommended by the National Osteoporosis Foundation (NOF). However, all treatment decisions require clinical judgment and consideration of individual patient factors, including patient preferences, comorbidities, previous drug use, risk factors not captured in the FRAX model (e.g., frailty, falls, vitamin D deficiency, increased bone turnover, interval significant decline in bone density) and possible under or overestimation of fracture risk by FRAX. The patient should follow a healthful lifestyle (good nutrition with adequate calcium and vitamin D, and appropriate weight-bearing exercise). Follow-Up: Consider repeating this study in 2 to 3 years to reassess this patient's status, or sooner if there is some new clinical indication. Reported by: SANDRA NEUMANN M.D. on 03/03/2023 9:56:00 AM.
== END ==
PROVIDERS: Family Provider Family Medicine; PCP Family Medicine; Referring Provider Internal Medicine Medical Oncology; Visit Provider Internal Medicine Medical Oncology
DX: Z79.818 Long term (current) use of other agents affecting estrogen receptors and estrogen levels (principal); C50.912 Malignant neoplasm of unspecified site of left female breast; M85.852 Other specified disorders of bone density and structure, left thigh; M85.851 Other specified disorders of bone density and structure, right thigh
CPT/HCPCS: 77080

== ENCOUNTER 2023-03-04 06:49 | Day surgery (SDC) | payer MEDICARE, BC, SELFPAY ==
[2020-05-19 14:52] VITALS: BMI 34.0
[2023-03-04 07:07] VITALS: BP 132/85; PULSE 100; RESP 18; TEMP 36.2; O2SAT 97; BMI 33.6
[2023-03-04] MEDS: LACTATED RINGERS 1,000 ML 150 ML IV (07:12)
--- NOTE | 2023-03-04 07:41 | PM.HP.1 ---
History of Present Illness History of Present Illness Date Patient Seen: 03/04/23 Time Patient Seen: 07:41 Chief complaint: Colonoscopy Narrative: 72-year-old woman personal history of colonic polyps here for screening colonoscopy. Last colonoscopy approximately 5 years ago. No family history of colon cancer in first-degree relatives. No abdominal concerns today including pain, unintentional weight loss, anorexia, blood per rectum. [facility] Medical History Arthritis of knee (2003) BCC (basal cell carcinoma of skin) (08/1981) Breast cancer, left Cataract (2011) CTS (carpal tunnel syndrome) (11/2015) History of colon polyps Hyperlipidemia MCL sprain of left knee Retinal detachment (11/2015) Tinnitus Well adult exam Surgical History Anesthesia H/O mastectomy History of colonoscopy History of ovarian cystectomy (07/1976) History of removal of skin mole (10/1981) Hx of left breast biopsy Family History Father Hypertension Parkinson's disease Heart attack Mother Age: 105 Hypertension Grandfather Parkinson's disease Brother No problems noted. Grandmother No problems noted. Sister No problems noted. Social History household members: spouse Smoking Status: Never smoker alcohol intake: current Meds Home Medications and Allergies Home Medications Medication Instructions Recorded Confirmed Type multivitamin with minerals 1 tab PO DAILY 02/05/19 03/04/23 History (Hair,Skin and Nails tablet) lifitegrast 5 % eye drops in a 1 drp ophthalmic (eye) DAILY 07/11/20 03/04/23 History dropperette (Xiidra) calcium carbonate 300 mg (750 mg) 300 mg PO DAILY 03/13/21 03/04/23 History chewable tablet (Tums) cholecalciferol (vitamin D3) 50 50 mcg PO DAILY 03/13/21 03/04/23 History mcg (2,000 unit) capsule (Vitamin D3) zinc 10 mg tablet 10 mg PO DAILY 09/11/21 03/04/23 History letrozole 2.5 mg tablet 2.5 mg PO DAILY #90 tabs 07/17/22 03/04/23 Rx metronidazole 0.75 % topical gel 1 applic topical DAILY rosacea 08/26/22 03/04/23 History pravastatin 20 mg tablet 20 mg PO BEDTIME #90 tabs 09/25/22 03/04/23 Rx Allergies Allergy/AdvReac Type Severity Reaction Status Date / Time No Known Drug Allergies Allergy Verified 03/04/23 07:02 Exam Vital Signs (past 8 hours): - 03/04/23 07:07 Temperature 97.2 F L Pulse Rate 100 H Respiratory Rate 18 Blood Pressure 132/85 Pulse Oximetry 97 Oxygen Delivery Method Room Air Oxygen Delivery Method Room Air Narrative Exam Narrative: General adult woman alert oriented no acute distress Abdomen soft nontender nondistended Assessment & Plan Assessment & Plan narrative: The patient requires colorectal screening and colonoscopy is recommended. Technical details were discussed. Risks, benefits, alternatives explained. Risks including but not limited to myocardial infarction, aspiration, bleeding, pain, missed lesion, incomplete examination, need for further radiographic studies, colonic perforation, and need for major abdominal surgery were discussed. All questions were answered to their satisfaction, and they are in agreement with this plan.
[2023-03-04 08:05] VITALS: BP 95/46; PULSE 80; RESP 15; TEMP 36.1; O2SAT 95
[2023-03-04 08:10] VITALS: BP 93/52; PULSE 95; RESP 16; O2SAT 96
--- NOTE | 2023-03-04 08:12 | PM.OP.COLON ---
Operative Date/Time/Diagnoses Date of procedure: 03/04/23 Time of procedure: 08:12 Pre-op diagnosis: Personal history of colonic polyps Post-op diagnosis: same Procedure & Clinicians Study performed: Colonoscopy Same procedure as scheduled: Yes Indications: 72-year-old woman personal history of colonic polyps here for screening colonoscopy Surgeon: Jayme Moralez Procedure Notes Procedure in detail: The history and physical was performed/updated and the patient is ASA class is 2. The procedure was discussed in detail with the patient. Potential risks complications including infection, bleeding, missed diagnosis, perforation, need for surgery, and were explained. Their questions were answered and informed consent was obtained. Patient was brought to the procedure room and placed standard monitoring equipment. The patient's vital signs were monitored continuously throughout the entire procedure. Prior to starting time-out was performed. The patient was placed in the left lateral recumbent position. Procedural sedation was administered by anesthesia. Examination began with a thorough inspection of the perianal area there was no evidence of fissures, fistulae, external hemorrhoids or cutaneous malignancy. The colonoscopy scope was then placed into the anal canal and was advanced to the cecum, which was identified by the ileocecal valve, the appendiceal orifice and the confluence of the taenia. The scope was then slowly withdrawn examining colon thoroughly in all directions, irrigating it of any residual stool. No masses or polyps Moderate diverticulosis--sigmoid The patient tolerated the procedure well. They will be discharged once criteria are met. The prep was of good/excellent quality. The withdrawl time was 6 minutes. Specimen(s): none sent Impression: Normal colonoscopy Post-procedure Plan for aftercare: No need for further colonoscopy unless symptomatic Disposition: same day surgery
[2023-03-04 08:21] VITALS: BP 107/62; PULSE 82; RESP 15; O2SAT 99
== END 2023-03-04 08:28 | disposition home or self-care (01) ==
PROVIDERS: Family Provider Family Medicine; PCP Family Medicine; Referring Provider Surgery; Visit Provider Surgery
PROC: 0DJD8ZZ Inspection of Lower Intestinal Tract, Via Natural or Artificial Opening Endoscopic (ICD-10-PCS; CPT 45378; principal; 2023-03-04 07:45)
DX: Z12.11 Encounter for screening for malignant neoplasm of colon (principal); Z86.010 Personal history of colon polyps; K57.30 Diverticulosis of large intestine without perforation or abscess without bleeding
CPT/HCPCS: G0105; J2704

== ENCOUNTER → 2023-04-07 14:40 | Outpatient (CLI) | payer MEDICARE, BC, SELFPAY ==
[2020-05-19 14:52] VITALS: BMI 34.0
--- NOTE | 2023-04-07 14:45 | DI.MG.S_ITS ---
UNILATERAL RIGHT DIGITAL SCREENING MAMMOGRAM 3D/2D WITH CAD POST MASTECTOMY: 04/07/2023 CLINICAL: Routine screening. Personal history of left breast cancer. Comparison is made to exams dated: 03/21/2022 mammogram, 03/03/2021 mammogram, 03/02/2020 mammogram, and 03/01/2019 mammogram - [facility]. There are scattered areas of fibroglandular density in the right breast (category b / 25%-50% glandular tissue). Current study was also evaluated with a Computer Aided Detection (CAD) system. There are benign calcifications in the right breast. There also are benign vascular calcifications in the right breast. No significant masses, calcifications, or other findings are seen in the breast. There has been no significant interval change. IMPRESSION: BENIGN There is no mammographic evidence of malignancy. A 1 year screening mammogram is recommended. This exam was interpreted at Station ID: [id number]. NOTE: For mammograms, a report in lay terms will be sent to the patient. Approximately 15% of breast malignancies will not be visualized mammographically. In the management of a palpable breast mass, a negative mammogram must not discourage biopsy of a clinically suspicious lesion. Electronically Signed By: Jose [email or web address]:04/08/2023 08:24:34 letter sent: Normal Exam ACR BI-RADS Category 2: Benign Finding(s) [id number]
== END ==
PROVIDERS: Family Provider Family Medicine; PCP Family Medicine; Referring Provider Family Medicine; Visit Provider Family Medicine
DX: Z12.31 Encounter for screening mammogram for malignant neoplasm of breast (principal); Z85.3 Personal history of malignant neoplasm of breast
CPT/HCPCS: 77063; 77067

== ENCOUNTER → 2023-07-08 09:15 | Outpatient (CLI) | payer MEDICARE, BC, SELFPAY ==
[2020-05-19 14:52] VITALS: BMI 34.0
[2023-07-08 10:22] LABS: Add Manual Diff / Slide Review NO; Basophils Absolute Auto 100 /uL (0-100); Basophils Percent Auto 1.1 % (0-2); Eosinophils Absolute Auto 200 /uL (0-450); Hematocrit 42.2 % (36-46); Hemoglobin 14.5 g/dL (12.0-16.0); Lymphocytes Absolute Auto 1900 /uL (1100-4500); Lymphocytes Percent Auto 33.9 % (25-40); Mean Corpuscular HGB Conc 34.5 % (30-36); Mean Corpuscular Hemoglobin 32.4 PG (26-34); Monocytes Absolute Auto 600 /uL (0-900); Monocytes Percent Auto 9.9 % (3-14); Neutrophils Absolute Auto 2900 /uL (1500-7000); Neutrophils Percent Auto 52.1 % (50-75); Platelet Count 302 X10^3/uL (150-400); Red Blood Cell Count 4.49 X10^6/uL (4.0-5.2); Red Cell Distribution Width 13.4 % (11.6-14.8); White Blood Cell Count 5.5 X10^3/uL (4.5-11.0)
[2023-07-08 11:02] LABS: Alanine Aminotransferase 56 IU/L (<35); Albumin 4.2 g/dL (3.5-5.0); Albumin Globulin Ratio 1.2 (1.0-2.8); Alkaline Phosphatase 53 U/L (38-126); Aspartate Aminotransferase 54 IU/L (14-36); BUN Creatinine Ratio 15.1 (6-22); Bilirubin Total 0.6 mg/dL (0.2-1.3); Blood Urea Nitrogen 11 mg/dL (7-17); Calcium 9.1 mg/dL (8.4-10.2); Carbon Dioxide 30 mmol/L (22-32); Chloride 104 mmol/L (98-107); Estimated Glomerular Filt Rate > 60 mL/min (>60); Globulin 3.4 g/dL (1.7-4.1); Glucose 108 mg/dL (80-110); HEMOLYSIS < 15 (0-50); Potassium 4.1 mmol/L (3.4-5.1); Sodium 139 mmol/L (137-145); Total Protein 7.6 g/dL (6.3-8.2)
[2023-07-08 11:46] LABS: TSH w/ Reflex to FT4 1.15 uIU/mL (0.47-4.68)
== END ==
LOC: LAB 09:17
PROVIDERS: Family Provider Family Medicine; PCP Family Medicine; Referring Provider Family Medicine; Visit Provider Family Medicine
DX: E78.5 Hyperlipidemia, unspecified (principal); C50.912 Malignant neoplasm of unspecified site of left female breast
CPT/HCPCS: 36415; 80053; 84443; 85025